=== PATIENT | female | born 1980 | race Caucasian/White ===

== ENCOUNTER 2019-04-20 10:18 | Emergency (ER) | payer OTHER, SELFPAY ==
[2019-04-20 10:26] VITALS: BP 129/78; PULSE 90; RESP 18; TEMP 36.8; O2SAT 98; BMI 23.3
--- NOTE | 2019-04-20 10:40 | ED_ITS ---
Entered by Gladis Pierce, acting as scribe for Apr 20, 2019 10:18 HPI - URI/Sore Throat General: Chief Complaint: Upper Respiratory Infection Stated Complaint: Ear pain, congested Time Seen by Provider: 04/20/19 10:33 Source: patient Mode of arrival: ambulatory Limitations: no limitations History of Present Illness: HPI Narrative: 38 yo female presents with congestion and R ear pain. pt states this started 1 week ago but worsened today when she woke up. pt has a productive cough that is green. pt denies any other symptoms at this time. MD elicited complaint: cough, nasal congestion and other (R ear pain) Onset (ago): week(s) (1 week ago) Consistency: constant Severity: moderate Description of mucous: green Able to tolerate fluids by mouth: Yes Exacerbating factors: nothing Relieving factors: nothing Associated symptoms: Reports congestion, cough, nasal congestion and other (R ear pain) Treatments prior to arrival: none Review of Systems General: Reports: 10 or more systems reviewed and unremarkable except in HPI and below ENMT: Reports: nasal congestion PFSH ED PFSH: Statuses (acute, chronic, etc) shown below reflect problem list status as previously entered and may not be historically accurate Social History Smoking and tobacco status: current every day smoker Female Reproductive History: Date of last menstrual period: 04/18/19 Physical Exam Const: COMMON NORMALS: no apparent distress, average body habitus, oriented x3, no limitations, healthy appearing, alert and well nourished Eye: COMMON NORMALS: PERRL, EOMs intact bilaterally, conjunctivae normal, no scleral icterus, no papilledema, normal visual guzman by confrontation and fundi normal bilaterally CONJUNCTIVA: Yes conjunctivae normal PUPIL: Yes PERRL DIRECT OPHTHALMOSCOPY: Yes no papilledema and Yes fundi normal bilaterally Neck/C-Spine: COMMON NORMALS: full ROM, no lymphadenopathy, supple, no meningeal signs, no JVD, thyroid normal and no carotid bruits THYROID: thyroid normal Chest: COMMONS NORMALS: inspection of chest normal and palpation of chest normal Resp: COMMON NORMALS: normal respiratory effort, no retractions, no use of accessory muscles, clear to auscultation bilaterally and percussion normal AUSCULTATION: clear to auscultation bilaterally PERCUSSION: percussion normal Cardio: COMMON NORMALS: no JVD, regular rate, regular rhythm, S1 normal heart sound, S2 normal heart sound, no gallops, no clicks, no murmurs, no rub and peripheral pulses 2+ throughout RATE: regular rate RHYTHM: regular rhythm HEART SOUNDS: S1 normal and S2 normal PERIPHERAL PULSES: pulses 2+ throughout GI: COMMON NORMALS: normal to inspection, nondistended, normoactive bowel sounds, soft to palpation, non-tender, no hepatosplenomegaly, no masses and no bruits PALPATION: Yes soft and Yes no hepatosplenomegaly : COMMON NORMALS: Yes no CVA tenderness and Yes external appearance normal BLADDER/KIDNEY EXAM: Yes no CVA tenderness Back/Pelvis: COMMON NORMALS: no CVA tenderness, thoracic and lumbar spine normal to inspection, no thoracic nor lumbar tenderness, thoraco-lumbar ROM normal and straight leg raise negative bilaterally Extremity: COMMON NORMALS: normal to inspection, full ROM, normal capillary refill, no joint enlargement, no clubbing, cyanosis or edema, no calf tenderness and no pedal edema Neuro: COMMON NORMALS: oriented x3 SENSORIUM/ORIENTATION: Yes alert MENINGEAL SIGNS: Yes no meningeal signs Skin: COMMON NORMALS: no rashes or lesions noted, no wounds, skin turgor normal, no jaundice, no petechiae and no mottling GENERAL SKIN EXAM: no rashes or lesions noted and turgor normal Course Vital Signs: Vital signs: Vital Signs Temperature 98.2 F 04/20/19 10:26 Pulse Rate 90 04/20/19 10:26 Respiratory Rate 18 04/20/19 10:26 Blood Pressure 129/78 04/20/19 10:26 Pulse Oximetry 98 04/20/19 10:26 Discharge Plan Discharge Clinical Impression: Upper respiratory infection, Sinusitis Condition: Stable Prescriptions: New Bactrim DS 800-160 mg tablet 1 tab PO BID 10 Days Qty: 20 RF: 0 prednisone 10 mg tablets,dose pack See Rx Instructions .ROUTE .COMPLEX Qty: 21 RF: 0 Discharge Orders: Discharge Order (Routine); Ordered 04/20/19 Ordered By: Anil Lee Coding Level of Care Code ED Software Developer Mid Level for Chg Fwd Exam Problem Focused The documentation recorded by the Stan fajardo Bridget Annette, accurately reflects the service I personally performed and the decisions made by me, Anil Olivo, DO Apr 20, 2019 10:18
--- NOTE | 2019-04-20 10:58 | W.ED.URI ---
HPI - URI/Sore Throat General: Chief Complaint: Upper Respiratory Infection Stated Complaint: Ear pain, congested Time Seen by Provider: 04/20/19 10:33 Source: patient Mode of arrival: ambulatory Limitations: no limitations History of Present Illness: MD elicited complaint: cough Severity: moderate Exacerbating factors: nothing Relieving factors: nothing Associated symptoms: Reports nasal congestion Treatments prior to arrival: none Review of Systems General: Reports: 10 or more systems reviewed and unremarkable except in HPI and below ENMT: Reports: nasal congestion PFSH ED PFSH: Statuses (acute, chronic, etc) shown below reflect problem list status as previously entered and may not be historically accurate Social History Smoking and tobacco status: current every day smoker Female Reproductive History: Date of last menstrual period: 04/18/19 Physical Exam Const: COMMON NORMALS: no apparent distress, average body habitus, oriented x3, no limitations, healthy appearing, alert and well nourished Eye: COMMON NORMALS: PERRL, EOMs intact bilaterally, conjunctivae normal, no scleral icterus, no papilledema, normal visual guzman by confrontation and fundi normal bilaterally CONJUNCTIVA: Yes conjunctivae normal PUPIL: Yes PERRL DIRECT OPHTHALMOSCOPY: Yes no papilledema and Yes fundi normal bilaterally Neck/C-Spine: COMMON NORMALS: full ROM, no lymphadenopathy, supple, no meningeal signs, no JVD, thyroid normal and no carotid bruits THYROID: thyroid normal Chest: COMMONS NORMALS: inspection of chest normal and palpation of chest normal Resp: COMMON NORMALS: normal respiratory effort, no retractions, no use of accessory muscles, clear to auscultation bilaterally and percussion normal AUSCULTATION: clear to auscultation bilaterally PERCUSSION: percussion normal Cardio: COMMON NORMALS: no JVD, regular rate, regular rhythm, S1 normal heart sound, S2 normal heart sound, no gallops, no clicks, no murmurs, no rub and peripheral pulses 2+ throughout RATE: regular rate RHYTHM: regular rhythm HEART SOUNDS: S1 normal and S2 normal PERIPHERAL PULSES: pulses 2+ throughout GI: COMMON NORMALS: normal to inspection, nondistended, normoactive bowel sounds, soft to palpation, non-tender, no hepatosplenomegaly, no masses and no bruits PALPATION: Yes soft and Yes no hepatosplenomegaly : COMMON NORMALS: Yes no CVA tenderness and Yes external appearance normal BLADDER/KIDNEY EXAM: Yes no CVA tenderness Back/Pelvis: COMMON NORMALS: no CVA tenderness, thoracic and lumbar spine normal to inspection, no thoracic nor lumbar tenderness, thoraco-lumbar ROM normal and straight leg raise negative bilaterally Extremity: COMMON NORMALS: normal to inspection, full ROM, normal capillary refill, no joint enlargement, no clubbing, cyanosis or edema, no calf tenderness and no pedal edema Neuro: COMMON NORMALS: oriented x3 SENSORIUM/ORIENTATION: Yes alert MENINGEAL SIGNS: Yes no meningeal signs Skin: COMMON NORMALS: no rashes or lesions noted, no wounds, skin turgor normal, no jaundice, no petechiae and no mottling GENERAL SKIN EXAM: no rashes or lesions noted and turgor normal Course Vital Signs: Vital signs: Vital Signs Temperature 98.2 F 04/20/19 10:26 Pulse Rate 90 04/20/19 10:26 Respiratory Rate 18 04/20/19 10:26 Blood Pressure 129/78 04/20/19 10:26 Pulse Oximetry 98 04/20/19 10:26 Discharge Plan Discharge Clinical Impression: Upper respiratory infection, Sinusitis Condition: Stable Prescriptions: New Bactrim DS 800-160 mg tablet 1 tab PO BID 10 Days Qty: 20 RF: 0 prednisone 10 mg tablets,dose pack See Rx Instructions .ROUTE .COMPLEX Qty: 21 RF: 0 Discharge Orders: Discharge Order (Routine); Ordered 04/20/19 Ordered By: Anil Lee Coding Level of Care Code ED Button Maker And Installer for Jake Edmonds
[2019-04-20] MEDS: cefTRIAXone 1,000 mg SDV 1000 MG IM (11:16)
[2019-04-20] MEDS: lidocaine 1% INJ 20 mL 3.6 ML INTRADERMA (11:16)
[2019-04-20 11:54] VITALS: BP 121/72; PULSE 71; RESP 18; O2SAT 96
== END 2019-04-20 11:57 | disposition home or self-care (01) ==
PROVIDERS: Emergency Provider Family Medicine
DX: J01.90 Acute sinusitis, unspecified (principal); F17.210 Nicotine dependence, cigarettes, uncomplicated
CPT/HCPCS: 96372; 99281; J0696; J2001; J2930

== ENCOUNTER 2019-05-09 02:04 | Emergency (ER) | payer OTHER, SELFPAY ==
[2019-05-09 02:09] VITALS: BP 121/67; PULSE 77; RESP 18; TEMP 36.5; O2SAT 99; BMI 23.3
--- NOTE | 2019-05-09 02:14 | ED_ITS ---
Entered by Marifer Gold, acting as scribe for Bernard Eng DO HPI - Abdominal Pain General: Chief Complaint: Abdominal Pain Stated Complaint: ABD PAIN/ABNORMAL PERIOD Time Seen by Provider: 05/09/19 02:13 Source: patient Mode of arrival: ambulatory History of Present Illness: HPI narrative: 38 y/o female presents to the ED with complaint of abd pain. Pt states she is currently on her period and has been bleeding for 10 days. This has happened once before, after having her last child. MD elicited complaint: abdominal pain Pain Consistency: intermittent Severity: mild Quality: stabbing Associated Symptoms: Denies chills, dysuria, fever(s), hematochezia, hematuria, melena, nausea and vomiting Related Data: Date of Last Menstrual Period: 04/18/19 Review of Systems Const: Denies: fever or chills Eyes: Denies: change in vision or blurry vision ENMT: Denies: dental pain Card: Denies: chest pain, palpitations, irregular heart rhythm, edema, swelling of feet/ankles, shortness of breath on exertion or shortness of breath when lying down Resp: Denies: shortness of breath, productive cough, non-productive cough or wheezing GI: Reports: abdominal pain; Denies: nausea, vomiting, rectal pain, blood in stool or black tarry stool : Reports: irregular period (more frequent); Denies: painful urination, urinary frequency, urinary urgency or blood in urine Musc: Reports: back pain; Denies: neck pain, redness or joint warmth Skin/Breast: Denies: rash, itching or redness Neuro: Reports: dizziness; Denies: headache PFSH ED PFSH: Statuses (acute, chronic, etc) shown below reflect problem list status as previously entered and may not be historically accurate Social History Smoking and tobacco status: current every day smoker Female Reproductive History: Date of last menstrual period: 04/18/19 Physical Exam Const: GENERAL APPEARANCE: well developed ORIENTATION/CONSCIOUSNESS: Yes oriented to person, Yes oriented to place and Yes oriented to time HENMT: COMMON NORMALS: normocephalic, external ears normal and external nose normal HEAD & SCALP: normocephalic; no scalp tenderness FACE & SINUS: normal facial exam NOSE: external nose normal EXTERNAL EAR: Yes external ears normal Eye: COMMON NORMALS: PERRL, EOMs intact bilaterally and conjunctivae normal EYELID: eyelids normal CONJUNCTIVA: Yes conjunctivae normal PUPIL: Yes PERRL Neck/C-Spine: COMMON NORMALS: full ROM GENERAL: No tracheal deviation CERVICAL SPINE: Yes normal cervical lordosis and No cervical spine tenderness Chest: COMMONS NORMALS: inspection of chest normal CHEST: No tenderness Resp: COMMON NORMALS: clear to auscultation bilaterally EFFORT & INSPECTION: No tachypneic, No respiratory distress, No retractions, No uses accessory muscles and No tracheal deviation AUSCULTATION: clear to auscultation bilaterally, no rhonchi, no wheezes and lung sounds not diminished Cardio: COMMON NORMALS: regular rate and regular rhythm RATE: regular rate RHYTHM: regular rhythm HEART SOUNDS: no murmurs PERIPHERAL PULSES: radial pulses present GI: COMMON NORMALS: soft to palpation INSPECTION: No abdominal distension AUSCULTATION: No hyperactive bowel sounds and No hypoactive bowel sounds PALPATION: Yes soft, Yes tender Details: RLQ, No guarding and No rigid PERCUSSION: no dullness to percussion and no tympanic to percussion : COMMON NORMALS: Yes no CVA tenderness BLADDER/KIDNEY EXAM: Yes no CVA tenderness Back/Pelvis: COMMON NORMALS: no CVA tenderness Neuro: SENSORIUM/ORIENTATION: Yes oriented to person, Yes oriented to place and Yes oriented to time Psych: COMMON NORMALS: mental status grossly normal Skin: COMMON NORMALS: no rashes or lesions noted GENERAL SKIN EXAM: no rashes or lesions noted Course ED course: Hemoglobin is 13. She is afebrile. Her white count is normal. She was actually here with another person, and decided to check in for this ch ronic problem. We will order an outpatient ultrasound of the pelvis for her. Vital Signs: Vital signs: Vital Signs Temperature 97.7 F 05/09/19 02:09 Pulse Rate 59 L 05/09/19 04:19 Respiratory Rate 17 05/09/19 04:19 Blood Pressure 103/57 05/09/19 04:19 Pulse Oximetry 100 05/09/19 04:19 MDM - Abdominal Pain Lab Data: Labs: Lab Results 05/09/19 05/09/19 05/09/19 Range/Units 02:26 02:26 02:26 WBC 6.2 (4.0-10.0) 10^3/ uL RBC 4.53 (4.1-5.3) 10^6/u L Hgb 13.1 (11.5-15.3) g/dL Hct 40.8 (37.0-47.0) % MCV 90.1 (81-99) fL MCH 28.9 (28.0-34.0) pg MCHC 32.1 (30.0-36.0) g/dL RDW 13.4 (12.1-15.1) % Plt Count 255 (130-400) 10^3/c mm MPV 9.7 (7.4-10.4) fL Neut % (Auto) 46.4 % Lymph % (Auto) 38.3 % [place] % (Auto) 12.4 % Eos % (Auto) 2.4 % Baso % (Auto) 0.2 % Neut # (Auto) 2.9 (1.8-7.7) 10^3/u L Lymph # (Auto) 2.4 (0.8-4.8) 10^3/u L [place] # (Auto) 0.8 (0.2-0.9) 10^3/u L Eos # (Auto) 0.2 (0.0-0.8) 10^3/u L Baso # (Auto) 0.0 (0.0-0.1) 10^3/u L Nucleated RBC % (a uto) 0 % Nucleated RBCs # 0.0 /100WBC PT 13.90 H (10.5-13.3) SECO NDS INR 1.03 (0.8-1.2) Sodium 136 (136-145) mmol/L Potassium 4.4 (3.5-5.1) mmol/L Chloride 100 (98-107) mmol/L Carbon Dioxide 26 (22-29) mmol/L Anion Gap 14.4 (5-19) BUN 10 (6-20) mg/dL Creatinine 0.8 (0.5-0.9) mg/dL GFR Calculation 80.3 L (90-130) mL/min Glucose 99 (74-109) mg/dL Calcium 8.9 (8.5-10.5) mg/dL Total Bilirubin 0.2 (0.15-1.2) mg/dL AST 17 (0-32) U/L ALT 14 (0-33) U/L Alkaline Phosphata se 110 H (35-105) IU/L Total Protein 8.0 (6.6-8.7) g/dL Albumin 4.1 (3.5-5.2) g/dL Globulin 3.9 (1.3-4.6) g/dL Lipase 58 (13-60) U/L HCG, Qual (Negative) Urine Color (Yellow) Urine Appearance (CLEAR) Urine pH (5-7) Ur Specific Gravit y (1.005-1.030) Urine Protein (Negative) Urine Glucose (UA) (Normal) Urine Ketones (Negative) Urine Occult Blood (Negative) Urine Nitrate (Negative) Urine Bilirubin (NEGATIVE) Urine Urobilinogen (Negative) mg/dL Ur Leukocyte Le ase (Negative) Urine RBC (0-2) /hpf Urine WBC (0-5) /hpf Ur Squamous Epith Cells (0-5) Urine Bacteria (NONE) 05/09/19 05/09/19 Range/Units 02:26 02:32 WBC (4.0-10.0) 10^3/ uL RBC (4.1-5.3) 10^6/u L Hgb (11.5-15.3) g/dL Hct (37.0-47.0) % MCV (81-99) fL MCH (28.0-34.0) pg MCHC (30.0-36.0) g/dL RDW (12.1-15.1) % Plt Count (130-400) 10^3/c mm MPV (7.4-10.4) fL Neut % (Auto) % Lymph % (Auto) % [place] % (Auto) % Eos % (Auto) % Baso % (Auto) % Neut # (Auto) (1.8-7.7) 10^3/u L Lymph # (Auto) (0.8-4.8) 10^3/u L [place] # (Auto) (0.2-0.9) 10^3/u L Eos # (Auto) (0.0-0.8) 10^3/u L Baso # (Auto) (0.0-0.1) 10^3/u L Nucleated RBC % (a uto) % Nucleated RBCs # /100WBC PT (10.5-13.3) SECO NDS INR (0.8-1.2) Sodium (136-145) mmol/L Potassium (3.5-5.1) mmol/L Chloride (98-107) mmol/L Carbon Dioxide (22-29) mmol/L Anion Gap (5-19) BUN (6-20) mg/dL Creatinine (0.5-0.9) mg/dL GFR Calculation (90-130) mL/min Glucose (74-109) mg/dL Calcium (8.5-10.5) mg/dL Total Bilirubin (0.15-1.2) mg/dL AST (0-32) U/L ALT (0-33) U/L Alkaline Phosphata se (35-105) IU/L Total Protein (6.6-8.7) g/dL Albumin (3.5-5.2) g/dL Globulin (1.3-4.6) g/dL Lipase (13-60) U/L HCG, Qual Negative (Negative) Urine Color Yellow (Yellow) Urine Appearance Clear (CLEAR) Urine pH 5 (5-7) Ur Specific Gravit y 1.020 (1.005-1.030) Urine Protein Neg (Negative) Urine Glucose (UA) Norm (Normal) Urine Ketones Negative (Negative) Urine Occult Blood 3+ H (Negative) Urine Nitrate Negative (Negative) Urine Bilirubin Neg (NEGATIVE) Urine Urobilinogen Norm (Negative) mg/dL Ur Leukocyte Le ase Negative (Negative) Urine RBC 0-4 H (0-2) /hpf Urine WBC 5-10 H (0-5) /hpf Ur Squamous Epith Cells 0-4 H (0-5) Urine Bacteria 1+ H (NONE) Discharge Plan Discharge Patient Disposition: Home, Self-Care Clinical Impression: Dysfunctional uterine bleeding Condition: Stable Prescriptions: New ketorolac 10 mg tablet 10 mg PO Q6H PRN (Reason: pain) Qty: 10 RF: 0 No Action prednisone 10 mg tablets,dose pack See Rx Instructions .ROUTE .COMPLEX Qty: 21 RF: 0 Discharge Orders: Discharge Order (Routine); Ordered 05/09/19 Ordered By: Bernard Eng Discharge Diet: Advance as tolerated Discharge Activity: Resume usual activity Patient Instructions: Dysfunctional Uterine Bleeding (ED) Activity Restrictions/Additional Instructions: You have been prescribed a potent anti-inflammatory which can help with pain, but also can help decrease bleeding from the uterus. You will be set up for an outpatient ultrasound. You should receive a call from the hospital regarding schedule this at the beginning of the week. If you do not call [phone] and ask for the ER nurse case manager. Return for fever greater than 100, worsening pain despite treatment, worsening bleeding despite treatment. Discharge Date/Time: 05/09/19 04:20 Coding Level of Care Code ED Air Deodorizer Servicer for Jake Edmonds The documentation recorded by the Asif fajardo Ashley, accurately reflects the service I personally performed and the decisions made by Velasquez fenton Jeremy John, DO May 09, 2019 02:04
[2019-05-09 02:20] VITALS: BP 113/62; PULSE 62; RESP 14; O2SAT 100
[2019-05-09] MEDS: ondansetron 2 mg/ML SDV 2 mL 4 MG IVP (02:39)
[2019-05-09] MEDS: ketorolac 30 mg/mL INJ IVP (02:39)
[2019-05-09 02:44] LABS: Basophils % 0.2 %; Eosinophils # 0.2 10^3/uL (0.0-0.8); Eosinophils % 2.4 %; Hematocrit 40.8 % (37.0-47.0); Hemoglobin 13.1 g/dL (11.5-15.3); Lymphocytes # 2.4 10^3/uL (0.8-4.8); Lymphocytes % 38.3 %; Mean Corpuscular HGB Conc 32.1 g/dL (30.0-36.0); Mean Corpuscular Hemoglobin 28.9 pg (28.0-34.0); Mean Corpuscular Volume 90.1 fL (81-99); Mean Platelet Volume 9.7 fL (7.4-10.4); Monocytes # 0.8 10^3/uL (0.2-0.9); Monocytes % 12.4 %; Neutrophils # 2.9 10^3/uL (1.8-7.7); Neutrophils % 46.4 %; Nucleated Red Blood Cells % 0 %; Platelet Count 255 10^3/cmm (130-400); Red Blood Count 4.53 10^6/uL (4.1-5.3); Red Cell Distribution Width 13.4 % (12.1-15.1); White Blood Count 6.2 10^3/uL (4.0-10.0)
[2019-05-09 02:52] LABS: HCG, Serum Qual Negative (Negative); INR 1.03 (0.8-1.2)
[2019-05-09 03:02] LABS: Alanine Aminotransferase 14 U/L (0-33); Albumin Level 4.1 g/dL (3.5-5.2); Alkaline Phosphatase 110 IU/L (35-105); Anion Gap 14.4 (5-19); Aspartate Amino Transferase 17 U/L (0-32); Blood Urea Nitrogen 10 mg/dL (6-20); Calcium 8.9 mg/dL (8.5-10.5); Carbon Dioxide 26 mmol/L (22-29); Chloride 100 mmol/L (98-107); Globulin 3.9 g/dL (1.3-4.6); Glomerular Filtration Rate 80.3 mL/min (90-130); Glucose 99 mg/dL (74-109); Lipase 58 U/L (13-60); Potassium 4.4 mmol/L (3.5-5.1); Sodium 136 mmol/L (136-145); Total Bilirubin 0.2 mg/dL (0.15-1.2)
[2019-05-09 03:28] LABS: Urine Color Yellow (Yellow)
[2019-05-09 03:29] VITALS: BP 93/60; PULSE 63; RESP 16; O2SAT 100
[2019-05-09 03:29] LABS: Add Urine Culture? No; Add Urine Microscopic? YES; Bacteria Urine 1+; Bilirubin Urine Neg (NEGATIVE); Blood Urine 3+ (Negative); Glucose Urine UA Norm (Normal); Ketones Urine Negative (Negative); Leukocyte Esterase Urine Negative (Negative); Nitrate Urine Negative (Negative); Protein Urine Neg (Negative); RBC Urine 0-4 /hpf (0-2); Squamous Epithelial Cell Urine 0-4 (0-5); Urine Appearance Clear (CLEAR); Urobilinogen Urine Norm (Negative); pH Urine 5 (5-7)
[2019-05-09 04:19] VITALS: BP 103/57; PULSE 59; RESP 17; O2SAT 100
--- NOTE | 2019-05-11 11:44 | DCPLANNER ---
Patient called hospice case manager asking about an ultrasound. online merchandising manager has order, but was unable to send order to centralized scheduling due to not having a primary care physician. online merchandising manager spoke with patient, she stated that she does not have a primary care physician at this time. online merchandising manager offered to get patient established with a [facility] [place], patient told hospice case manager to get her established with a physician. online merchandising manager faxed order to centralized scheduling, will call for appointment information. online merchandising manager will schedule a follow up appointment for patient with Uzma Kaiser at [facility] [place] after the ultrasound is scheduled.
--- NOTE | 2019-05-14 09:22 | DCPLANNER ---
Patient called family preservation caseworker and informed family preservation caseworker that her primary care physician is Dr. Calero at [facility]. compensation consulting manager called centralized scheduling, and asked that it be changed on order to have results sent to Dr. Calero instead of Uzma Kaiser. An ultrasound is scheduled for May at 3:00.
--- NOTE | 2019-06-16 15:18 | DCPLANNER ---
Patient did not attend appointment scheduled for 05.27.19 for an ultrasound.
== END 2019-05-09 04:20 | disposition home or self-care (01) ==
PROVIDERS: Emergency Provider Emergency Medicine
DX: N93.8 Other specified abnormal uterine and vaginal bleeding (principal); F17.210 Nicotine dependence, cigarettes, uncomplicated
CPT/HCPCS: 80053; 81001; 83690; 84703; 85025; 85610; 96374; 96375; 99283; J1885; J2405

== ENCOUNTER 2019-05-11 16:35 | Emergency (ER) | payer OTHER, SELFPAY ==
[2019-05-11 16:38] VITALS: BP 120/71; PULSE 68; RESP 16; TEMP 36.6; O2SAT 100; BMI 23.0
[2019-05-11 17:08] LABS: Basophils % 0.1 %; Eosinophils # 0.1 10^3/uL (0.0-0.8); Eosinophils % 1.1 %; Hematocrit 39.6 % (37.0-47.0); Hemoglobin 12.7 g/dL (11.5-15.3); Lymphocytes # 2.8 10^3/uL (0.8-4.8); Lymphocytes % 33.4 %; Mean Corpuscular HGB Conc 32.1 g/dL (30.0-36.0); Mean Corpuscular Hemoglobin 29.3 pg (28.0-34.0); Mean Corpuscular Volume 91.2 fL (81-99); Mean Platelet Volume 9.8 fL (7.4-10.4); Monocytes # 0.5 10^3/uL (0.2-0.9); Monocytes % 6.2 %; Nucleated Red Blood Cells % 0 %; Platelet Count 264 10^3/cmm (130-400); Red Blood Count 4.34 10^6/uL (4.1-5.3); Red Cell Distribution Width 13.2 % (12.1-15.1); White Blood Count 8.5 10^3/uL (4.0-10.0)
[2019-05-11 17:21] LABS: Alanine Aminotransferase 15 U/L (0-33); Albumin Level 4.4 g/dL (3.5-5.2); Alkaline Phosphatase 114 IU/L (35-105); Anion Gap 13.3 (5-19); Aspartate Amino Transferase 21 U/L (0-32); Blood Urea Nitrogen 6 mg/dL (6-20); Calcium 9.1 mg/dL (8.5-10.5); Carbon Dioxide 27 mmol/L (22-29); Chloride 99 mmol/L (98-107); Globulin 3.5 g/dL (1.3-4.6); Glomerular Filtration Rate 80.3 mL/min (90-130); Potassium 4.3 mmol/L (3.5-5.1); Sodium 135 mmol/L (136-145); Total Bilirubin 0.2 mg/dL (0.15-1.2); Total Protein 7.9 g/dL (6.6-8.7)
--- NOTE | 2019-05-11 18:21 | US_ITS ---
WS: [id number] TRANSABDOMINAL PELVIC AND TRANSVAGINAL PELVIC ULTRASOUND HISTORY: vaginal bleeding and pain COMPARISON: None available. Uterus: 10.1 cm x 5.7 cm x 6.0 cm. Uterus is slightly enlarged and anteverted. Coarsened myometrium. No fibroid is identified. Endometrium: 1.3 cm. Poorly visualized endometrium in its entirety. There is a very small amount of f ree fluid along the endometrial canal. Right ovary: 6.6 cm x 5.8 cm x 2.4 cm. Abnormal appearance to the RIGHT ovary and RIGHT adnexa. Multi cystic mass with septations in adjacent free fluid. Largest cyst is minimally complex measuring 4.1 x 3.2 cm. There are smaller cysts and a small amount of adjacent fluid. Normal vascularity. Left ovary: 1.8 cm x 2.5 cm x 1.3 cm. Normal. Normal vascularity with no cysts. Small amount of free fluid in the RIGHT adnexa. US/US pelvis lmt w transvag IMPRESSION: 1. Enlarged RIGHT ovary with multiple complex cysts and adjacent free fluid. L argest cyst measures 4.1 x 3.2 cm. Recommend follow-up ultrasound after 2-3 men strual cycles to be sure this cystic mass resolves. Due to the enlargement and the numerous cysts patient is at risk for torsion. At this time there is no tor scott. 2. Endometrium is poorly visualized but no abnormality. Endometrium can be ree valuated in 2-3 menstrual cycles also.
--- NOTE | 2019-05-11 18:34 | ED_ITS ---
HPI - Female Genitourinary General: Chief complaint: Urogenital-Female Stated complaint: BLEEDING X 15 DAYS Time Seen by Provider: 05/11/19 18:18 Source: patient Limitations: no limitations History of Present Illness: HPI Narrative: 38 yo female patient presents to ER with intermittent vaginal bleeding and pain. Pt states this has been going on for months. Pt denies being . pt jefe any nausea or vomiting. pt denies any fever. pt denies any back pain Vaginal bleeding: scant and moderate Urinary symptoms: Difficulty Urinating, Dysuria and Flank Pain Exacerbating factors: none Associated symptoms: Reports abdominal pain (right pelvic pain); Deny headache(s) Date of Last Menstrual Period: 04/18/19 Review of Systems Const: Denies: fever, chills, body aches, fatigue or malaise Card: Denies: chest pain or palpitations Resp: Denies: shortness of breath or productive cough GI: Reports: abdominal pain (right pelvic pain) : Denies: flank pain, difficulty urinating or painful urination Skin/Breast: Denies: rash Neuro: Denies: headache Psych: Denies: anxiety, suicidal ideation or homicidal ideation PFSH ED PFSH: Statuses (acute, chronic, etc) shown below reflect problem list status as previously entered and may not be historically accurate Social History Smoking and tobacco status: current every day smoker Female Reproductive History: Date of last menstrual period: 04/18/19 Physical Exam Const: COMMON NORMALS: no apparent distress and no limitations Lymph: LYMPHATIC: no lymphadenopathy noted Resp: COMMON NORMALS: normal respiratory effort, no retractions, no use of accessory muscles and clear to auscultation bilaterally AUSCULTATION: clear to auscultation bilaterally Cardio: COMMON NORMALS: regular rate and regular rhythm RATE: regular rate RHYTHM: regular rhythm GI: COMMON NORMALS: normal to inspection, nondistended, normoactive bowel sounds and soft to palpation PALPATION: Yes soft and Yes tender (right lower pelvic region) RECTAL EXAM: deferred : COMMON NORMALS: Yes no CVA tenderness BLADDER/KIDNEY EXAM: Yes no CVA tenderness Back/Pelvis: COMMON NORMALS: no CVA tenderness, thoracic and lumbar spine normal to inspection, no thoracic nor lumbar tenderness and thoraco-lumbar ROM normal Skin: COMMON NORMALS: no rashes or lesions noted GENERAL SKIN EXAM: no rashes or lesions noted Course ED course: Pt is well appearing non toxic and in no acute distress. Pt US reveals ovarian cyst. no evidence of ovarian torsion. Pts urine does not reflect any infection. pt H & H are stable. This could be related to premenopausal sx. Pt just got established wit new PCP and has pap smear scheduled. pt to f/u pt advised to take nsaids for pain. return precautions advised home care reviewed. UPT negative. pt deneis any vaginal discharge. no concerns for STD. Vital Signs: Vital signs: Vital Signs Temperature 97.9 F 05/11/19 16:38 Pulse Rate 68 05/11/19 16:38 Respiratory Rate 16 05/11/19 16:38 Blood Pressure 120/71 05/11/19 16:38 Pulse Oximetry 100 05/11/19 16:38 MDM - Female Lab Data: Labs: Lab Results 05/11/19 05/11/19 Range/Units 16:56 16:56 WBC 8.5 (4.0-10.0) 10^3/ uL RBC 4.34 (4.1-5.3) 10^6/u L Hgb 12.7 (11.5-15.3) g/dL Hct 39.6 (37.0-47.0) % MCV 91.2 (81-99) fL MCH 29.3 (28.0-34.0) pg MCHC 32.1 (30.0-36.0) g/dL RDW 13.2 (12.1-15.1) % Plt Count 264 (130-400) 10^3/c mm MPV 9.8 (7.4-10.4) fL Neut % (Auto) 59.0 % Lymph % (Auto) 33.4 % [place] % (Auto) 6.2 % Eos % (Auto) 1.1 % Baso % (Auto) 0.1 % Neut # (Auto) 5.0 (1.8-7.7) 10^3/u L Lymph # (Auto) 2.8 (0.8-4.8) 10^3/u L [place] # (Auto) 0.5 (0.2-0.9) 10^3/u L Eos # (Auto) 0.1 (0.0-0.8) 10^3/u L Baso # (Auto) 0.0 (0.0-0.1) 10^3/u L Nucleated RBC % (a uto) 0 % Nucleated RBCs # 0.0 /100WBC Sodium 135 L (136-145) mmol/L Potassium 4.3 (3.5-5.1) mmol/L Chloride 99 (98-107) mmol/L Carbon Dioxide 27 (22-29) mmol/L Anion Gap 13.3 (5-19) BUN 6 (6-20) mg/dL Creatinine 0.8 (0.5-0.9) mg/dL GFR Calculation 80.3 L (90-130) mL/min Glucose 117 H (65-115) mg/dL Calcium 9.1 (8.5-10.5) mg/dL Total Bilirubin 0.2 (0.15-1.2) mg/dL AST 21 (0-32) U/L ALT 15 (0-33) U/L Alkaline Phosphata se 114 H (35-105) IU/L Total Protein 7.9 (6.6-8.7) g/dL Albumin 4.4 (3.5-5.2) g/dL Globulin 3.5 (1.3-4.6) g/dL Discharge Plan Discharge Patient Disposition: Home, Self-Care Clinical Impression: Ovarian cyst Qualifiers: Laterality: right Qualified Code(s): N83.201 - Unspecified ovarian cyst, right side Condition: Stable Prescriptions: No Action prednisone 10 mg tablets,dose pack See Rx Instructions .ROUTE .COMPLEX Qty: 21 RF: 0 ketorolac 10 mg tablet 10 mg PO Q6H PRN (Reason: pain) Qty: 10 RF: 0 Discharge Diet: Advance as tolerated Discharge Activity: Resume usual activity Activity Restrictions/Additional Instructions: Please take over the counter Ibuprofen as needed for discomfort Please follow up with your PCP for check up and follow up. Please return to ER with any worsening of symptoms Coding Level of Care Code ED Presser [employer] for Jake Edmonds
--- NOTE | 2019-05-11 18:41 | PC.NURSE ---
patient gone to us
[2019-05-11 19:05] LABS: Add Urine Microscopic? NO
[2019-05-11 19:19] LABS: Bilirubin Urine Neg (NEGATIVE); Blood Urine Neg (Negative); Glucose Urine UA Norm (Normal); Ketones Urine Negative (Negative); Leukocyte Esterase Urine Negative (Negative); Nitrate Urine Negative (Negative); Protein Urine Neg (Negative); Urine Appearance Clear (CLEAR); Urine Color Yellow (Yellow); Urobilinogen Urine 1 mg/dL (Negative); pH Urine 7 (5-7)
[2019-05-11 19:46] VITALS: BP 100/54; PULSE 64; RESP 18; TEMP 36.5; O2SAT 98
[2019-05-12 09:02] LABS: Glucose 117 mg/dL (65-115)
== END 2019-05-11 19:48 | disposition home or self-care (01) ==
PROVIDERS: Registered Nurse; Emergency Provider Emergency Medicine
DX: N83.201 Unspecified ovarian cyst, right side (principal); F17.200 Nicotine dependence, unspecified, uncomplicated
CPT/HCPCS: 36415; 76830; 76857; 80053; 81003; 81025; 85025; 99282

== ENCOUNTER 2019-06-03 07:50 | Emergency (ER) | payer OTHER, SELFPAY ==
[2019-06-03 07:59] VITALS: BMI 23.3
[2019-06-03 08:02] VITALS: BP 137/75; PULSE 76; RESP 18; TEMP 36.6; O2SAT 99
[2019-06-03 09:20] VITALS: BP 125/62; PULSE 63; RESP 17; O2SAT 100
--- NOTE | 2019-06-03 09:20 | ED_ITS ---
Entered by Jesus Alberto Bob, acting as scribe for Wyatt Mcwilliams DO Jun 03, 2019 07:50 HPI - Back Pain/Injury General: Chief Complaint: Back Pain/Injury Stated Complaint: BACK PAIN Time Seen by Provider: 06/03/19 09:23 History of Present Illness: HPI Narrative: 38 yo female presents with back pain. Pt states that she thinks she pulled something in her back yesterday. Pt states that she is having a hard time sitting up straight. Pt states that she has had abd pain and vaginal bleeding for a couple of weeks. Pt states that she has an appointment with her OB tomorrow. Associated symptoms: Reports abdominal pain; Deny chills, difficulty walking, dysuria, fatigue, fever(s), hematuria, nausea, syncope, urinary urgency or vomiting Review of Systems Const: Denies: fever, chills, body aches, fatigue, malaise or night sweats Eyes: Denies: change in vision or blurry vision ENMT: Denies: throat pain, oral sores/lesions, dental pain, nasal discharge or nasal congestion Card: Denies: chest pain, palpitations, irregular heart rhythm, edema, syncope, shortness of breath on exertion, shortness of breath when lying down or leg pain with exertion Resp: Denies: shortness of breath, productive cough, non-productive cough or wheezing GI: Reports: abdominal pain; Denies: nausea, vomiting, vomiting blood, coffee grounds in vomit, difficulty swallowing, heartburn/indigestion, diarrhea, constipation, cramping, blood in stool or black tarry stool : Denies: flank pain, painful urination, urinary frequency, urinary urgency, urinary incontinence or blood in urine Musc: Reports: back pain; Denies: neck pain, extremity pain, extremity swelling, joint pain or joint swelling Skin/Breast: Denies: rash, itching or redness Neuro: Denies: headache, numbness in extremities, weakness in extremities, changes in sensation, lack of coordination, difficulty walking, frequent falls, dizziness, vertigo or confusion Psych: Denies: anxiety, depression, loss of interest, visual hallucinations, auditory hallucinations, suicidal ideation or homicidal ideation Endo: Denies: excessive urination, excessive thirst, tired all the time or cold intolerance Yobani/Lymph: Denies: easy bruising, easy bleeding, petechiae, enlarged lymph nodes or tender lymph nodes PFSH ED PFSH: Medical History (Updated 06/03/19 @ 10:31 by Wyatt Mcwilliams DO) Acute arthritis Scoliosis Surgical History (Updated 06/03/19 @ 10:04 by Jesus Alberto Bob) History of laparoscopy Social History Smoking and tobacco status: current every day smoker Female Reproductive History: Date of last menstrual period: 04/18/19 Physical Exam Const: COMMON NORMALS: average body habitus, oriented x3 and alert GENERAL APPEARANCE: cooperative, comfortable, well kempt and well developed NUTRITIONAL APPEARANCE: obese ORIENTATION/CONSCIOUSNESS: Yes awake, Yes oriented to person and Yes oriented to place HENMT: COMMON NORMALS: normocephalic, head/scalp atraumatic, EAC's normal, TM's normal bilaterally, external nose normal, moist oral mucous membranes and oropharynx normal HEAD & SCALP: normocephalic and atraumatic NOSE: external nose normal EXTERNAL AUDITORY CANAL: EAC's normal TYMPANIC MEMBRANE: TM's normal bilaterally MOUTH: oral and palatal mucosa normal, lip normal and tongue normal THROAT: posterior oropharynx normal and tonsils normal Eye: COMMON NORMALS: PERRL, EOMs intact bilaterally, conjunctivae normal and no scleral icterus CONJUNCTIVA: Yes conjunctivae normal PUPIL: Yes PERRL Neck/C-Spine: COMMON NORMALS: full ROM, no lymphadenopathy, supple, no meningeal signs and thyroid normal THYROID: thyroid normal and asymmetrical Lymph: LYMPHATIC: no lymphadenopathy noted Resp: COMMON NORMALS: normal respiratory effort, no retractions, no use of accessory muscles and clear to auscultation bilaterally AUSCULTATION: clear to auscultation bilaterally Cardio: COMMON NORMALS: regular rate and regular rhythm RATE: regular rate RHYTHM: regular rhythm HEART SOUNDS: no murmurs GI: COMMON NORMALS: normal to inspection, nondistended, normoactive bowel sounds, soft to palpation and no hepatosplenomegaly PALPATION: Yes soft and Yes no hepatosplenomegaly : COMMON NORMALS: Yes no CVA tenderness BLADDER/KIDNEY EXAM: Yes no CVA tenderness Back/Pelvis: COMMON NORMALS: no CVA tenderness LUMBAR SPINE/LOWER BACK: Yes pain with ROM Extremity: COMMON NORMALS: no clubbing, cyanosis or edema, no calf tenderness and no pedal edema Neuro: COMMON NORMALS: oriented x3 SENSORIUM/ORIENTATION: Yes alert, Yes oriented to person and Yes oriented to place MENINGEAL SIGNS: Yes no meningeal signs Psych: APPEARANCE: Yes well kempt Skin: COMMON NORMALS: no rashes or lesions noted and skin turgor normal GENERAL SKIN EXAM: no rashes or lesions noted and turgor normal Course Vital Signs: Vital signs: Vital Signs Temperature 97.8 F 06/03/19 08:02 Pulse Rate 58 L 06/03/19 10:38 Respiratory Rate 15 06/03/19 10:38 Blood Pressure 107/70 06/03/19 10:38 Pulse Oximetry 100 06/03/19 10:38 Discharge Plan Discharge Patient Disposition: Home, Self-Care Clinical Impression: Strain of lumbar region Condition: Stable Prescriptions: New hydrocodone-acetaminophen 5-325 mg tablet 1 tab PO Q6H PRN (Reason: pain) Qty: 10 RF: 0 diclofenac sodium 75 mg tablet,delayed release (DR/EC) 75 mg PO Q12H PRN (Reason: pain) Qty: 20 RF: 0 cyclobenzaprine 10 mg tablet 10 mg PO TID PRN (Reason: muscle spasm) Qty: 20 RF: 0 No Action Tylenol Extra Strength 500 mg Tablet 500 mg PO Q4H PRN (Reason: Pain) RF: 0 iron 325 mg (65 mg iron) Tablet 325 mg PO DAILY RF: 0 Discharge Orders: Discharge Order (Routine); Ordered 06/03/19 Ordered By: Wyatt Mcwilliams Discharge Diet: Usual diet Discharge Activity: Increase activity as tolerated Activity Restrictions/Additional Instructions: Follow-up with your primary care doctor if this does not improve Stand Alone Forms: Work/School Release Discharge Date/Time: 06/03/19 10:39 Coding Level of Care Code ED Urogynecology Physician for Chg Fwd Exam Comprehensive The documentation recorded by the Paulino fajardo Kialy, accurately reflects the service I personally performed and the decisions made by Oj fenton Curtis L, DO Jun 03, 2019 07:50
[2019-06-03] MEDS: ketorolac 60 mg/2 mL INJ IM (10:16)
[2019-06-03] MEDS: orphenadrine 30 mg/mL Inj 2 mL 60 MG IM (10:20)
[2019-06-03 10:38] VITALS: BP 107/70; PULSE 58; RESP 15; O2SAT 100
== END 2019-06-03 10:39 | disposition home or self-care (01) ==
PROVIDERS: Emergency Provider Family Medicine
DX: S39.012A Strain of muscle, fascia and tendon of lower back, initial encounter (principal); E66.9 Obesity, unspecified; Z68.23 Body mass index [BMI] 23.0-23.9, adult; F17.200 Nicotine dependence, unspecified, uncomplicated; X58.XXXA Exposure to other specified factors, initial encounter
CPT/HCPCS: 96372; 99281; 99283; J1885; J2360

== ENCOUNTER 2019-09-04 10:35 | Emergency (ER) | payer OTHER, SELFPAY ==
[2019-09-04 10:43] VITALS: BMI 22.2
[2019-09-04 10:45] VITALS: BP 116/69; PULSE 74; RESP 16; TEMP 36.4; O2SAT 98
--- NOTE | 2019-09-04 10:50 | W.ED.EAR ---
HPI - Ear Problem General: Chief complaint: Ear Stated complaint: INSECT IN L EAR Time Seen by Provider: 09/04/19 10:43 History of Present Illness: HPI Narrative: Patient is a 39-year-old female comes to the ED with a left ear problem. Patient states she has an insect in her left ear. Incident occurred just prior to arrival. Patient felt something crawling in her neck and she swatted at it and felt to go into her left ear. Patient says she can feel it moving in her ear every now and then. She rates this discomfort about a 7 out of 10. Denies any other symptoms. Associated symptoms: Reports ear or mastoid pain (due to possible insect in ear); Denies fever(s), headache(s) or neck pain Review of Systems Const: Denies: fever(s), chills or fatigue Eyes: Denies: change in vision or eye discomfort ENMT: Reports: ear or mastoid pain (due to possible insect in ear) and other (possible insect in ear); Denies: throat pain, odynophagia, nasal discharge or nasal congestion Card: Denies: chest pain, palpitations, edema, swelling of feet/ankles, dyspnea on exertion or orthopnea Resp: Denies: dyspnea, productive cough or non-productive cough GI: Denies: abdominal pain, nausea, vomiting, diarrhea, constipation or hematochezia : Denies: flank pain, dysuria or hematuria Musc: Denies: neck pain, back pain or extremity swelling Skin/Breast: Denies: rash or new lesions Neuro: Denies: headache(s), numbness in extremities or weakness in extremities PFS ED PFSH: Medical History Acute arthritis Scoliosis Surgical History History of section x 2, 1998, 2019 History of laparoscopy (~2004) With cyst removal from right ovary and take down of adhesions [place] teeth extracted Family History Grandmother Diabetes maternal and paternal Hypertension maternal and paternal Stroke maternal Heart disease maternal Family/Other Diabetes Maternal aunt Hyperlipidemia Maternal and paternal aunt and uncle Breast cancer Maternal aunt, diagnosed in her 60s Uterine cancer Maternal cousin, diagnosed at age 24 Mother Hyperlipidemia Hypertension Stroke Heart disease Father Hypertension Stroke Heart disease Sister Thyroid condition Denies family history of Colon cancer Ovarian cancer Anesthesia complication Social History Smoking and tobacco status: current every day smoker cigarettes Packs smoked per day: 1 [ Other cigarette details: Started smoking age 9 and smokes up to 1 pack daily ] Alcohol intake: current Alcohol intake frequency: holidays/special occasions only 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 [employer] Female Reproductive History: Date of last menstrual period: 08/19/19 Physical Exam Const: COMMON NORMALS: no acute distress, patient oriented x3, healthy appearing and alert GENERAL APPEARANCE: cooperative HENMT: COMMON NORMALS: normocephalic and TM's normal bilaterally HEAD & SCALP: normocephalic EXTERNAL AUDITORY CANAL: Abnormal EAC present EAC laterality: right Details: excessive cerumen and left (no actual insect visualized.) Details: excessive cerumen and EAC tenderness TYMPANIC MEMBRANE: TM's normal bilaterally MOUTH: Normal oral and palatal mucosa present THROAT: posterior oropharynx normal and uvula midline Eye: COMMON NORMALS: Equal, round and reactive pupils present PUPIL: Yes Equal, round and reactive pupils present Neck/C-Spine: COMMON NORMALS: supple GENERAL: Yes normal visual inspection Resp: COMMON NORMALS: normal respiratory effort, No retractions, No use of accessory muscles and clear to auscultation bilaterally AUSCULTATION: clear to auscultation bilaterally Cardio: COMMON NORMALS: regular rate, regular rhythm, S1 normal heart sound present, S2 normal heart sound present, No gallops present (Cardio), No clicks present (Cardio), No murmurs present (Cardio) and Peripheral pulses 2+ throughout RATE: regular rate RHYTHM: regular rhythm HEART SOUNDS: S1 normal heart sound present and S2 normal heart sound present PERIPHERAL PULSES: Peripheral pulses 2+ throughout GI: COMMON NORMALS: Normal to inspection, nondistended, normoactive bowel sounds present, Soft to palpation, non-tender and no masses PALPATION: Yes Soft to palpation : COMMON NORMALS: Yes no CVA tenderness BLADDER/KIDNEY EXAM: Yes no CVA tenderness Back/Pelvis: COMMON NORMALS: no CVA tenderness Extremity: COMMON NORMALS: normal to inspection and no pedal edema Neuro: COMMON NORMALS: patient oriented x3 and moves all extremities SENSORIUM/ORIENTATION: Yes alert Skin: COMMON NORMALS: no rashes or lesions noted GENERAL SKIN EXAM: no rashes or lesions noted and dry skin Course ED course: Nurse irrigated left ear and flushed out some earwax. I then reexamined the ear and saw no insect present in the TM was intact and no perforation seen. Patient says her ear feels normal now. Vital Signs: Vital signs: Vital Signs Temperature 97.6 F 09/04/19 10:45 Pulse Rate 74 09/04/19 10:45 Respiratory Rate 16 09/04/19 10:45 Blood Pressure 116/69 09/04/19 10:45 Pulse Oximetry 98 09/04/19 10:45 MDM - Ear MDM Narrative: Medical decision making narrative: Patient is a 39-year-old female comes to the ED with possible insect in the left ear. Physical exam showed some cerumen in the external canal both right and left ear, no insects seen in left ear and both tympanic membranes look normal and were not perforated. Nurse then flushed left ear and remove some cerumen. No insect was seen or removed during flush. I reexamined the left ear and sold no insect or foreign body. Patient stated her left ear feels normal now. Patient was discharged and told to follow-up with PCP in 7 to 10 days. Return to ED if symptoms worsen. She understood and agreed with plan. Discharge Plan Discharge Patient Disposition: Home, Self-Care Clinical Impression: Foreign body sensation in ear canal Qualifiers: Laterality: left Qualified Code(s): H61.892 - Other specified disorders of left external ear Condition: Stable Prescriptions: No Action Midol Max St Menstrual 500-60-15 mg tablet 2 tab PO Q6H PRNRF: 0 Tylenol Extra Strength 500 mg Tablet 500 mg PO Q4H PRN (Reason: Pain) RF: 0 iron 325 mg (65 mg iron) Tablet 325 mg PO DAILY RF: 0 hydrocodone-acetaminophen 5-325 mg tablet 1 tab PO Q6H PRN (Reason: pain) Qty: 10 RF: 0 diclofenac sodium 75 mg tablet,delayed release (DR/EC) 75 mg PO Q12H PRN (Reason: pain) Qty: 20 RF: 0 cyclobenzaprine 10 mg tablet 10 mg PO TID PRN (Reason: muscle spasm) Qty: 20 RF: 0 Discharge Orders: Discharge Order (Routine); Ordered 09/04/19 Ordered By: Cali Saeed Discharge Diet: Regular Discharge Activity: Resume usual activity Patient Instructions: Foreign Body - Ear Activity Restrictions/Additional Instructions: Follow-up with your PCP in 7 to 10 days for reevaluation. If symptoms worsen he can return to the ED or urgent care for reevaluation. Coding Level of Care Code ED Peoplesoft Administrator for Jake Fwd Exam Comprehensive
== END 2019-09-04 11:34 | disposition home or self-care (01) ==
PROVIDERS: Emergency Provider Physician Assistant
DX: H61.892 Other specified disorders of left external ear (principal); F17.210 Nicotine dependence, cigarettes, uncomplicated
CPT/HCPCS: 12345; 99282

== ENCOUNTER 2020-02-13 19:03 | Emergency (ER) | payer SELFPAY ==
[2020-02-13 19:22] VITALS: BP 122/81; PULSE 76; RESP 14; TEMP 36.6; O2SAT 100; BMI 22.7
--- NOTE | 2020-02-13 19:54 | W.ED.EXTPRO ---
HPI - Extremity Problem General: Chief complaint: Extremity Problem,Nontraumatic Stated complaint: right side hip/leg pain Time Seen by Provider: 02/13/20 19:53 History of Present Illness: HPI Narrative: Patient is a 39-year-old female comes to the ED with lower back pain that radiates down to her right leg. Patient says symptoms started approximately 2 weeks ago after doing a lot of lifting to help someone move. She says the pain has gotten worse and its sharp and burning pain that shoots down into the right upper leg. Weakness to extremities, pelvic anesthesia, bladder or bowel incontinence. Associated symptoms: Deny chest pain, fever(s) or rash Review of Systems Const: Denies: fever(s), chills or fatigue Eyes: Denies: change in vision or eye discomfort ENMT: Denies: throat pain, odynophagia, nasal discharge or nasal congestion Card: Denies: chest pain, palpitations, edema, swelling of feet/ankles, dyspnea on exertion or orthopnea Resp: Denies: dyspnea, productive cough or non-productive cough GI: Denies: abdominal pain, nausea, vomiting, diarrhea, constipation or hematochezia : Denies: flank pain, dysuria or hematuria Musc: Reports: back pain (radiates down into right leg); Denies: neck pain or extremity swelling Skin/Breast: Denies: rash or new lesions Neuro: Denies: headache(s), numbness in extremities or weakness in extremities PFS ED PFSH: Medical History Acute arthritis Scoliosis Surgical History History of section x 2, 1998, 2019 History of laparoscopy (~2004) With cyst removal from right ovary and take down of adhesions [place] teeth extracted Family History Grandmother Diabetes maternal and paternal Hypertension maternal and paternal Stroke maternal Heart disease maternal Family/Other Diabetes Maternal aunt Hyperlipidemia Maternal and paternal aunt and uncle Breast cancer Maternal aunt, diagnosed in her 60s Uterine cancer Maternal cousin, diagnosed at age 24 Mother Hyperlipidemia Hypertension Stroke Heart disease Father Hypertension Stroke Heart disease Sister Thyroid condition Denies family history of Colon cancer Ovarian cancer Anesthesia complication Social History Smoking and tobacco status: current every day smoker cigarettes Packs smoked per day: 1 [ Other cigarette details: Started smoking age 9 and smokes up to 1 pack daily ] Alcohol intake: current Alcohol intake frequency: holidays/special occasions only 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 [employer] Female Reproductive History: Date of last menstrual period: 08/19/19 Physical Exam Const: COMMON NORMALS: no acute distress, patient oriented x3 and alert GENERAL APPEARANCE: cooperative and comfortable HENMT: COMMON NORMALS: normocephalic HEAD & SCALP: normocephalic MOUTH: Normal oral and palatal mucosa present THROAT: posterior oropharynx normal and uvula midline Neck/C-Spine: COMMON NORMALS: supple GENERAL: Yes normal visual inspection Resp: COMMON NORMALS: normal respiratory effort, No retractions, No use of accessory muscles and clear to auscultation bilaterally AUSCULTATION: clear to auscultation bilaterally Cardio: COMMON NORMALS: regular rate, regular rhythm, S1 normal heart sound present, S2 normal heart sound present, No gallops present (Cardio), No clicks present (Cardio), No murmurs present (Cardio) and Peripheral pulses 2+ throughout RATE: regular rate RHYTHM: regular rhythm HEART SOUNDS: S1 normal heart sound present and S2 normal heart sound present PERIPHERAL PULSES: Peripheral pulses 2+ throughout GI: COMMON NORMALS: Normal to inspection, nondistended, normoactive bowel sounds present, Soft to palpation, non-tender and no masses PALPATION: Yes Soft to palpation : COMMON NORMALS: Yes no CVA tenderness BLADDER/KIDNEY EXAM: Yes no CVA tenderness Back/Pelvis: COMMON NORMALS: no CVA tenderness LUMBAR SPINE/LOWER BACK: Yes pain with ROM, Yes paraspinal muscle tenderness and Yes straight leg raise positive right Extremity: COMMON NORMALS: normal to inspection and no pedal edema Neuro: COMMON NORMALS: patient oriented x3 and moves all extremities SENSORIUM/ORIENTATION: Yes alert Skin: COMMON NORMALS: no rashes or lesions noted GENERAL SKIN EXAM: no rashes or lesions noted and dry skin Course Vital Signs: Vital signs: Vital Signs Temperature 98.1 F 02/13/20 20:11 Pulse Rate 72 02/13/20 20:55 Respiratory Rate 14 02/13/20 19:22 Blood Pressure 113/81 02/13/20 20:11 Pulse Oximetry 95 02/13/20 20:55 MDM - Extremity (Nontraumatic) MDM Narrative: Medical decision making narrative: Patient is a 39-year-old female comes to the ED with lower back pain that radiates down into the right leg. Physical exam shows some lumbar tenderness and positive right straight leg test. No cauda equina symptoms. Patient given Toradol and Solu-Medrol while here in the ED. Patient diagnosed with acute lumbar radiculopathy. She was sent home with a prescription for Medrol Dosepak and Robaxin. Return to ED precautions given. Follow-up with PCP in 7 to 10 days. Discharge Plan Discharge Patient Disposition: Home Clinical Impression: Acute lumbar radiculopathy Condition: Stable Prescriptions: New methocarbamol 750 mg tablet 750 mg PO Q8H Qty: 30 RF: 0 Medrol (Simeon) 4 mg tablets,dose pack See Rx Instructions .ROUTE .COMPLEX Qty: 21 RF: 0 ibuprofen 800 mg tablet 800 mg PO Q8H PRN (Reason: pain) Qty: 30 RF: [address] Action Midol Max St Menstrual 500-60-15 mg tablet 2 tab PO Q6H PRNRF: 0 Tylenol Extra Strength 500 mg Tablet 500 mg PO Q4H PRN (Reason: Pain) RF: 0 iron 325 mg (65 mg iron) Tablet 325 mg PO DAILY RF: 0 hydrocodone-acetaminophen 5-325 mg tablet 1 tab PO Q6H PRN (Reason: pain) Qty: 10 RF: 0 diclofenac sodium 75 mg tablet,delayed release (DR/EC) 75 mg PO Q12H PRN (Reason: pain) Qty: 20 RF: 0 cyclobenzaprine 10 mg tablet 10 mg PO TID PRN (Reason: muscle spasm) Qty: 20 RF: 0 Discharge Orders: Discharge Order (Routine); Ordered 02/13/20 Ordered By: Cali Saeed Discharge Diet: Regular Discharge Activity: Resume usual activity Patient Instructions: Lumbar Radiculopathy (ED) Activity Restrictions/Additional Instructions: Follow-up with medical provider as directed in 7-10 days. Take medications as prescribed. Apply cold pack and rest to allow for healing. Stretch lower back daily. Return to the ER or your medical provider if condition worsens. Please read and understand discharge instructions. If any questions, please ask. Discharge Date/Time: 02/13/20 20:50 Coding Level of Care Code ED Manager Library for Chg Fwd Exam Comprehensive
[2020-02-13 20:11] VITALS: BP 113/81; PULSE 85; TEMP 36.7; O2SAT 100
[2020-02-13] MEDS: orphenadrine 30 mg/mL Inj 2 mL 60 MG IM (20:35)
[2020-02-13] MEDS: ketorolac 60 mg/2 mL INJ IM (20:40)
[2020-02-13 20:55] VITALS: PULSE 72; O2SAT 95
== END 2020-02-13 20:50 | disposition home or self-care (01) ==
PROVIDERS: Emergency Provider Physician Assistant
DX: M54.16 Radiculopathy, lumbar region (principal); F17.210 Nicotine dependence, cigarettes, uncomplicated
CPT/HCPCS: 12345; 96372; 99281; 99283; J1885; J2360; J2930

== ENCOUNTER 2020-03-17 11:44 | Emergency (ER) | payer OTHER, SELFPAY ==
[2020-03-17 11:51] VITALS: BP 131/86; PULSE 90; RESP 18; TEMP 36.7; O2SAT 100; BMI 21.7
--- NOTE | 2020-03-17 12:10 | W.ED.EXTPRO ---
HPI - Extremity Problem General: Chief complaint: Extremity Injury, Lower Stated complaint: R HIP PAIN, GOING DOWN R LEG Time Seen by Provider: 03/17/20 12:09 History of Present Illness: HPI Narrative: Patient is a 39-year-old female comes to the ED with chronic lower back pain that radiates down into the right lower extremity. Patient has been having the symptoms for the past 3 months. She was seen here in the ED for same complaint on February 12. She says her symptoms improved for a little bit after treatment but now have worsened. She says she has right lumbar back pain that radiates down into back of her right leg. Pain is described as sharp and she rates an 8 out of 10. Denies any bladder or bowel incontinence, pelvic anesthesia or any weakness to her extremities. She is currently trying to get into primary care physician to establish care. She would like me to contact case management to try to set up a referral for her to see a PCP so she can have further outpatient management of lower back pain. Denies any acute injury to cause onset of symptoms. Associated symptoms: Deny chest pain, fever(s) or rash Review of Systems Const: Denies: fever(s), chills or fatigue Eyes: Denies: change in vision or eye discomfort ENMT: Denies: throat pain, odynophagia, nasal discharge or nasal congestion Card: Denies: chest pain, palpitations, edema, swelling of feet/ankles, dyspnea on exertion or orthopnea Resp: Denies: dyspnea, productive cough or non-productive cough GI: Denies: abdominal pain, nausea, vomiting, diarrhea, constipation or hematochezia : Denies: flank pain, dysuria or hematuria Musc: Reports: back pain; Denies: neck pain or extremity swelling Skin/Breast: Denies: rash or new lesions Neuro: Denies: headache(s), numbness in extremities or weakness in extremities PFS ED PFSH: Medical History Acute arthritis Scoliosis Surgical History History of section x 2, 1998, 2019 History of laparoscopy (~2004) With cyst removal from right ovary and take down of adhesions [place] teeth extracted Family History Grandmother Diabetes maternal and paternal Hypertension maternal and paternal Stroke maternal Heart disease maternal Family/Other Diabetes Maternal aunt Hyperlipidemia Maternal and paternal aunt and uncle Breast cancer Maternal aunt, diagnosed in her 60s Uterine cancer Maternal cousin, diagnosed at age 24 Mother Hyperlipidemia Hypertension Stroke Heart disease Father Hypertension Stroke Heart disease Sister Thyroid condition Denies family history of Colon cancer Ovarian cancer Anesthesia complication Social History Smoking and tobacco status: current every day smoker cigarettes Packs smoked per day: 1 [ Other cigarette details: Started smoking age 9 and smokes up to 1 pack daily ] Alcohol intake: current Alcohol intake frequency: holidays/special occasions only 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 Reproductive History: Date of last menstrual period: 03/17/20 Physical Exam Const: COMMON NORMALS: no acute distress, patient oriented x3, healthy appearing and alert GENERAL APPEARANCE: cooperative and comfortable HENMT: COMMON NORMALS: normocephalic HEAD & SCALP: normocephalic MOUTH: Normal oral and palatal mucosa present THROAT: posterior oropharynx normal and uvula midline Eye: COMMON NORMALS: Equal, round and reactive pupils present PUPIL: Yes Equal, round and reactive pupils present Neck/C-Spine: COMMON NORMALS: supple GENERAL: Yes normal visual inspection Resp: COMMON NORMALS: normal respiratory effort, No retractions, No use of accessory muscles and clear to auscultation bilaterally AUSCULTATION: clear to auscultation bilaterally Cardio: COMMON NORMALS: regular rate, regular rhythm, S1 normal heart sound present, S2 normal heart sound present, No gallops present (Cardio), No clicks present (Cardio), No murmurs present (Cardio) and Peripheral pulses 2+ throughout RATE: regular rate RHYTHM: regular rhythm HEART SOUNDS: S1 normal heart sound present and S2 normal heart sound present PERIPHERAL PULSES: Peripheral pulses 2+ throughout GI: COMMON NORMALS: Normal to inspection, nondistended, normoactive bowel sounds present, Soft to palpation, non-tender and no masses PALPATION: Yes Soft to palpation : COMMON NORMALS: Yes no CVA tenderness BLADDER/KIDNEY EXAM: Yes no CVA tenderness Back/Pelvis: COMMON NORMALS: no CVA tenderness LUMBAR SPINE/LOWER BACK: No lumbar spinal tenderness, Yes paraspinal muscle tenderness, Yes straight leg raise positive right and Yes other soft tissue findings Other lumbar soft tissue findings laterality: right Right other lumbar soft tissue findings details: tenderness Extremity: COMMON NORMALS: normal to inspection Neuro: COMMON NORMALS: patient oriented x3 and moves all extremities SENSORIUM/ORIENTATION: Yes alert Skin: GENERAL SKIN EXAM: dry skin Course Vital Signs: Vital signs: Vital Signs Temperature 98.1 F 03/17/20 11:51 Pulse Rate 90 03/17/20 11:51 Respiratory Rate 18 03/17/20 11:51 Blood Pressure 131/86 03/17/20 11:51 Pulse Oximetry 100 03/17/20 11:51 MDM - Extremity (Nontraumatic) MDM Narrative: Medical decision making narrative: Patient is a 39-year-old female comes to the ED with chronic lower back pain that radiates down right leg. No recent acute injury to cause symptoms. Denies any bladder or bowel incontinence, pelvic anesthesia, weakness to extremities. Patient needs referral to PCP so I placed an order with case management for patient to get referral. She was given Toradol and IM steroid injection while she was here in the ED. Sent home with a prescription for Medrol Dosepak and baclofen. I told her that someone should be contacting her in the next several days to set up an appointment with PCP. Return to ED precautions given. Patient understood agree with plan. Discharge Plan Discharge Patient Disposition: Home Clinical Impression: Lumbar radiculopathy Condition: Stable Prescriptions: New baclofen 10 mg tablet 10 mg PO TID Qty: 30 RF: 0 Medrol (Simeon) 4 mg tablets,dose pack See Rx Instructions .ROUTE .COMPLEX Qty: 21 RF: 0 No Action Midol Max St Menstrual 500-60-15 mg tablet 2 tab PO Q6H PRNRF: 0 Tylenol Extra Strength 500 mg Tablet 500 mg PO Q4H PRN (Reason: Pain) RF: 0 iron 325 mg (65 mg iron) Tablet 325 mg PO DAILY RF: 0 hydrocodone-acetaminophen 5-325 mg tablet 1 tab PO Q6H PRN (Reason: pain) Qty: 10 RF: 0 diclofenac sodium 75 mg tablet,delayed release (DR/EC) 75 mg PO Q12H PRN (Reason: pain) Qty: 20 RF: 0 cyclobenzaprine 10 mg tablet 10 mg PO TID PRN (Reason: muscle spasm) Qty: 20 RF: 0 methocarbamol 750 mg tablet 750 mg PO Q8H Qty: 30 RF: 0 Medrol (Simeon) 4 mg tablets,dose pack See Rx Instructions .ROUTE .COMPLEX Qty: 21 RF: 0 ibuprofen 800 mg tablet 800 mg PO Q8H PRN (Reason: pain) Qty: 30 RF: 0 Discharge Orders: Discharge ED (Routine); Ordered 03/17/20 Ordered By: Cali Saeed Discharge Diet: Regular Discharge Activity: Increase activity as tolerated Patient Instructions: Lumbar Radiculopathy (ED) Activity Restrictions/Additional Instructions: Follow-up with medical provider as directed. Take medications as prescribed. Return to the ER or your medical provider if condition worsens. Please read and understand discharge instructions. If any questions, please ask. Baclofen dosing shedule. Start with taking half a pill 3 times daily for 3 days, then titrate up by 5mg every 3 days untill you get to 20mg. Coding Level of Care Code ED Exceptional Student Education Aide for Jake Fwsusana Exam Comprehensive
[2020-03-17] MEDS: ketorolac 60 mg/2 mL INJ IM (12:51)
[2020-03-17] MEDS: dexamethasone 4 mg/mL INJ 10 MG IM (12:51)
--- NOTE | 2020-03-20 13:40 | DCPLANNER ---
legal department manager had message to speak with patient about getting established with a primary care physician. legal department manager spoke with patient, she stated that she does not have insurance at this time. legal department manager will mail patient both of the financial aide applications for the hospital to fill out and turn in. legal department manager offered to get patient established with a primary care, patient stated that she wanted to wait and see where she was at with the financial adviser application before scheduling an appointment.
== END 2020-03-17 13:03 | disposition home or self-care (01) ==
PROVIDERS: Emergency Provider Physician Assistant
DX: M54.16 Radiculopathy, lumbar region (principal); F17.210 Nicotine dependence, cigarettes, uncomplicated; M41.9 Scoliosis, unspecified
CPT/HCPCS: 12345; 96372; 99281; 99283; J1100; J1885

== ENCOUNTER 2020-08-17 21:40 | Emergency (ER) | payer MEDICAID, SELFPAY ==
[2020-08-17 21:51] VITALS: BP 150/95; PULSE 114; RESP 18; TEMP 36.6; O2SAT 96; BMI 22.7
--- NOTE | 2020-08-17 22:06 | W.ED.DENTAL ---
HPI - Dental/Oral General: Chief complaint: Dental/Oral Stated complaint: facial swelling Time Seen by Provider: 08/17/20 21:54 Source: patient Mode of arrival: ambulatory Limitations: no limitations History of Present Illness: HPI Narrative: Patient is a 40-year-old female who presents to ED today with a complaint of dental pain and facial swelling. Patient tells me a few days ago while eating she bit down and states her left third molar cracked and her filling fell out. Patient tells me she has been having severe pain since then and has noticed some mild left-sided facial swelling. She has not noticed any submandibular swelling, she is not having any trouble swallowing/eating/drinking no fevers. Patient states she did contact a dentist who told her they would see her following a round of antibiotics. MD Complaint: tooth pain Onset (ago): day(s) Duration: constant Severity: severe Relieving factors: nothing Exacerbating factors: chewing Context: history of dental caries Associated symptoms: Denies ear or mastoid pain, fever(s) or odynophagia Treatment prior to arrival: topical analgesic and oral analgesic Review of Systems Const: Denies: fever(s), chills, body aches, fatigue or malaise Eyes: Denies: change in vision ENMT: Reports: dental pain; Denies: odynophagia, swelling of lips/tongue, ear or mastoid pain, nasal discharge, nasal congestion, post nasal drip or sinus pain Card: Denies: chest pain GI: Denies: nausea or vomiting Musc: Denies: neck pain Neuro: Denies: headache(s) [facility] ED PFSH: Medical History (Updated 08/17/20 @ 22:05 by FLORENCE Jones) Acute arthritis Scoliosis Surgical History History of section x 2, 1998, 2019 History of laparoscopy (~2004) With cyst removal from right ovary and take down of adhesions [place] teeth extracted Family History Grandmother Diabetes maternal and paternal Hypertension maternal and paternal Stroke maternal Heart disease maternal Family/Other Diabetes Maternal aunt Hyperlipidemia Maternal and paternal aunt and uncle Breast cancer Maternal aunt, diagnosed in her 60s Uterine cancer Maternal cousin, diagnosed at age 24 Mother Hyperlipidemia Hypertension Stroke Heart disease Father Hypertension Stroke Heart disease Sister Thyroid condition Denies family history of Colon cancer Ovarian cancer Anesthesia complication Social History Smoking and tobacco status: current every day smoker cigarettes Packs smoked per day: 1 [ Other cigarette details: Started smoking age 9 and smokes up to 1 pack daily ] Alcohol intake: current Alcohol intake frequency: holidays/special occasions only 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 [employer] Female Reproductive History: Date of last menstrual period: 03/17/20 Physical Exam Const: COMMON NORMALS: no acute distress, average body habitus, patient oriented x3, no limitations, healthy appearing, alert and well nourished GENERAL APPEARANCE: cooperative ORIENTATION/CONSCIOUSNESS: Yes awake, Yes oriented to person, Yes oriented to place and Yes oriented to time HENMT: COMMON NORMALS: normocephalic, atraumatic, hearing grossly normal bilaterally, external ears normal, EAC's normal, TM's normal bilaterally, Normal external nose present, Normal nasal mucous membranes and turbinates present, moist oral mucous membranes, oropharynx normal and gingiva normal HEAD & SCALP: normal to inspection, normocephalic and atraumatic FACE & SINUS: sinuses nontender FACE & SINUS IMAGES: 1. tenderness and mild swelling; no abscess; no facial cellulitis NOSE: Normal external nose present and Normal nasal mucous membranes and turbinates present EXTERNAL EAR: Yes external ears normal EXTERNAL AUDITORY CANAL: EAC's normal TYMPANIC MEMBRANE: TM's normal bilaterally MOUTH: Normal oral and palatal mucosa present, lip normal and tongue normal TEETH & GINGIVA: Yes poor dentition TEETH & GINGIVA IMAGES: 1. cracked broken molar with severe caries THROAT: posterior oropharynx normal, tonsils normal and uvula midline Neck/C-Spine: COMMON NORMALS: full ROM and no lymphadenopathy GENERAL: Yes normal visual inspection Neuro: COMMON NORMALS: patient oriented x3 SENSORIUM/ORIENTATION: Yes alert, Yes oriented to person, Yes oriented to place and Yes oriented to time Course Vital Signs: Vital signs: Vital Signs Temperature 97.8 F 08/17/20 21:51 Pulse Rate 114 H 08/17/20 21:51 Respiratory Rate 18 08/17/20 21:51 Blood Pressure 150/95 08/17/20 21:51 Pulse Oximetry 96 08/17/20 21:51 Discharge Plan Discharge Patient Disposition: Home Clinical Impression: Dental caries, Pain, dental Condition: Stable Prescriptions: New penicillin V potassium 500 mg tablet 500 mg PO Q8H 7 Days Qty: 21 RF: 0 tramadol 50 mg tablet 50 mg PO Q6H PRN (Reason: pain) Qty: 10 RF: 0 Discontinued acetaminophen [Tylenol Extra Strength] 500 mg Tablet 500 mg PO Q4H PRN (Reason: Pain) RF: 0 hydrocodone-acetaminophen 5-325 mg tablet 1 tab PO Q6H PRN (Reason: pain) Qty: 10 RF: [address] Action Midol Max St Menstrual 500-60-15 mg tablet 2 tab PO Q6H PRNRF: 0 iron 325 mg (65 mg iron) Tablet 325 mg PO DAILY RF: 0 diclofenac sodium 75 mg tablet,delayed release (DR/EC) 75 mg PO Q12H PRN (Reason: pain) Qty: 20 RF: 0 cyclobenzaprine 10 mg tablet 10 mg PO TID PRN (Reason: muscle spasm) Qty: 20 RF: 0 methocarbamol 750 mg tablet 750 mg PO Q8H Qty: 30 RF: 0 Medrol (Simeon) 4 mg tablets,dose pack See Rx Instructions .ROUTE .COMPLEX Qty: 21 RF: 0 ibuprofen 800 mg tablet 800 mg PO Q8H PRN (Reason: pain) Qty: 30 RF: 0 baclofen 10 mg tablet 10 mg PO TID Qty: 30 RF: 0 Medrol (Simeon) 4 mg tablets,dose pack See Rx Instructions .ROUTE .COMPLEX Qty: 21 RF: 0 Discharge Orders: Discharge ED (Routine); Ordered 08/17/20 Ordered By: Sarah Fenton Patient Instructions: Dental Caries (ED), Toothache (ED), Opioid Safety, Dental Abscess Activity Restrictions/Additional Instructions: [facility] is committed to fighting the nationwide opiate epidemic. We are providing ALL patients with information regarding opiate safety. If you received opiate pain medication during your stay or if you received a prescription for opiate pain medication-please review this handout. If not, you may disregard. Thank you. Coding Level of Care Code ED Digital Account Executive for Jake Edmonds
[2020-08-17] MEDS: TRAMadol 50 mg Tablet PO (22:12)
== END 2020-08-17 22:44 | disposition home or self-care (01) ==
PROVIDERS: Emergency Provider Physician Assistant
DX: K02.9 Dental caries, unspecified (principal); F17.210 Nicotine dependence, cigarettes, uncomplicated; M41.9 Scoliosis, unspecified
CPT/HCPCS: 99283

== ENCOUNTER 2020-08-22 12:08 | Emergency (ER) | payer MEDICAID, SELFPAY ==
[2020-08-22 12:14] VITALS: BP 158/100; PULSE 93; RESP 16; TEMP 36.5; O2SAT 97; BMI 22.7
--- NOTE | 2020-08-22 13:13 | W.ED.DENTAL ---
HPI - Dental/Oral General: Chief complaint: Dental/Oral Stated complaint: pain on right side of face Time Seen by Provider: 08/22/20 13:04 Source: patient Mode of arrival: ambulatory Limitations: no limitations History of Present Illness: HPI Narrative: Patient is a 40-year-old male who returns to the ED for complaints of dental pain. Patient was seen by myself several days ago for identical symptoms. She was placed on Pen VK. She states she has been taking this as prescribed and has approximately 4 tablets left. She had plans to follow-up with a dentist but states she is having trouble finding somewhere that takes her insurance. She tells me she does have an appointment scheduled for next Friday. She is returning to the ED because pain has continued to be severe. She has not noticed any facial swelling or swelling to her neck. She is still able to eat, drink, control secretions. She has not been running fevers. MD Complaint: tooth pain Teeth map: 1. Duration: constant Severity: severe Relieving factors: nothing Context: history of dental caries and poor dental care Associated symptoms: Reports ear or mastoid pain (L); Denies fever(s) or odynophagia Treatment prior to arrival: oral analgesic Review of Systems Const: Denies: fever(s), chills, body aches, fatigue or malaise Eyes: Denies: change in vision, blurry vision, photophobia, eye discomfort, eye discharge, floaters or seeing flashes ENMT: Reports: dental pain and ear or mastoid pain (L); Denies: throat pain, enlarged tonsils, odynophagia, hoarseness, mouth pain, swelling of lips/tongue, oral sores, ear discharge, change in hearing, disequilibrium, nasal discharge, nasal congestion, epistaxis, post nasal drip or sinus pain Card: Denies: chest pain Resp: Denies: dyspnea GI: Denies: nausea or vomiting Musc: Denies: neck pain Skin/Breast: Denies: rash Neuro: Denies: headache(s), numbness in extremities, weakness in extremities, sensory changes, dizziness or vertigo [facility] ED PFSH: Medical History (Updated 08/22/20 @ 13:14 by FLORENCE Jones) Acute arthritis Scoliosis Surgical History History of section x 2, 1998, 2019 History of laparoscopy (~2004) With cyst removal from right ovary and take down of adhesions [place] teeth extracted Family History Grandmother Diabetes maternal and paternal Hypertension maternal and paternal Stroke maternal Heart disease maternal Family/Other Diabetes Maternal aunt Hyperlipidemia Maternal and paternal aunt and uncle Breast cancer Maternal aunt, diagnosed in her 60s Uterine cancer Maternal cousin, diagnosed at age 24 Mother Hyperlipidemia Hypertension Stroke Heart disease Father Hypertension Stroke Heart disease Sister Thyroid condition Denies family history of Colon cancer Ovarian cancer Anesthesia complication Social History Smoking and tobacco status: current every day smoker cigarettes Packs smoked per day: 1 [ Other cigarette details: Started smoking age 9 and smokes up to 1 pack daily ] Alcohol intake: current Alcohol intake frequency: holidays/special occasions only 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 [employer] Female Reproductive History: Date of last menstrual period: 08/22/20 Physical Exam Const: COMMON NORMALS: no acute distress, average body habitus, patient oriented x3, no limitations, healthy appearing, alert and well nourished GENERAL APPEARANCE: cooperative ORIENTATION/CONSCIOUSNESS: Yes awake, Yes oriented to person, Yes oriented to place and Yes oriented to time HENMT: COMMON NORMALS: normocephalic, atraumatic, hearing grossly normal bilaterally, external ears normal, EAC's normal, TM's normal bilaterally, Normal external nose present, Normal nasal mucous membranes and turbinates present, moist oral mucous membranes and oropharynx normal HEAD & SCALP: normal to inspection, normocephalic and atraumatic FACE & SINUS: normal facial exam and sinuses nontender NOSE: Normal external nose present and Normal nasal mucous membranes and turbinates present EXTERNAL EAR: Yes external ears normal EXTERNAL AUDITORY CANAL: EAC's normal TYMPANIC MEMBRANE: TM's normal bilaterally TEETH & GINGIVA: Yes poor dentition TEETH & GINGIVA IMAGES: 1. reports tenderness; dental caries present; no abscess THROAT: posterior oropharynx normal and tonsils normal Eye: COMMON NORMALS: Equal, round and reactive pupils present and EOMs intact bilaterally GENERAL EYE: appearance normal, both eyes and all related structures PUPIL: Yes Equal, round and reactive pupils present Neck/C-Spine: COMMON NORMALS: full ROM, no lymphadenopathy and no meningeal signs GENERAL: No anterior neck swelling and No submandibular swelling Neuro: CRYSTAL COMA SCALE: document GCS findings Crystal coma scale eye opening: Spontaneous Fine coma scale verbal response: Orientated Crystal coma scale motor response: Obey commands Fine coma scale total score: 15 COMMON NORMALS: patient oriented x3 and CN's II-XII intact bilaterally SENSORIUM/ORIENTATION: Yes alert, Yes oriented to person, Yes oriented to place and Yes oriented to time MENINGEAL SIGNS: Yes no meningeal signs Skin: COMMON NORMALS: no rashes or lesions noted GENERAL SKIN EXAM: no rashes or lesions noted Course Vital Signs: Vital signs: Vital Signs Temperature 97.7 F 08/22/20 12:14 Pulse Rate 93 08/22/20 12:14 Respiratory Rate 16 08/22/20 12:14 Blood Pressure 158/100 08/22/20 12:14 Pulse Oximetry 97 08/22/20 12:14 MDM - Dental/Oral MDM Narrative: Medical decision making narrative: Patient will be given small amount of Tylenol 3 to help with pain. I did explain to her that we cannot keep giving her controlled pain medications for dental pain from the ED. She verbalized understanding. Discussed things that should prompt a return to ED visit but otherwise she needs to follow up with a dentist. Discharge Plan Discharge Patient Disposition: Home Clinical Impression: Dental caries, Toothache Condition: Stable Prescriptions: New acetaminophen-codeine 300-30 mg tablet 1 tab PO Q4H PRN (Reason: pain) Qty: 14 RF: 0 Discontinued tramadol 50 mg tablet 50 mg PO Q6H PRN (Reason: pain) Qty: 10 RF: [address] Max St Menstrual 500-60-15 mg tablet 2 tab PO Q6H PRNRF: 0 iron 325 mg (65 mg iron) Tablet 325 mg PO DAILY RF: 0 diclofenac sodium 75 mg tablet,delayed release (DR/EC) 75 mg PO Q12H PRN (Reason: pain) Qty: 20 RF: 0 cyclobenzaprine 10 mg tablet 10 mg PO TID PRN (Reason: muscle spasm) Qty: 20 RF: 0 methocarbamol 750 mg tablet 750 mg PO Q8H Qty: 30 RF: 0 Medrol (Simeon) 4 mg tablets,dose pack See Rx Instructions .ROUTE .COMPLEX Qty: 21 RF: 0 ibuprofen 800 mg tablet 800 mg PO Q8H PRN (Reason: pain) Qty: 30 RF: 0 baclofen 10 mg tablet 10 mg PO TID Qty: 30 RF: 0 Medrol (Simeon) 4 mg tablets,dose pack See Rx Instructions .ROUTE .COMPLEX Qty: 21 RF: 0 penicillin V potassium 500 mg tablet 500 mg PO Q8H 7 Days Qty: 21 RF: 0 Discharge Orders: Discharge ED (Routine); Ordered 08/22/20 Ordered By: Sarah Fenton Patient Instructions: Dental Caries (ED), Toothache (ED) Coding Level of Care Code ED Fuel Manager for Chg Fwd Exam Detailed
== END 2020-08-22 13:32 | disposition home or self-care (01) ==
PROVIDERS: Emergency Provider Physician Assistant
DX: K02.9 Dental caries, unspecified (principal); M41.9 Scoliosis, unspecified; F17.210 Nicotine dependence, cigarettes, uncomplicated
CPT/HCPCS: 99281

== ENCOUNTER 2020-11-04 10:57 | Emergency (ER) | payer MEDICAID, SELFPAY ==
[2020-11-04 11:17] VITALS: BP 149/92; PULSE 98; RESP 16; TEMP 37; O2SAT 99; BMI 28.1
--- NOTE | 2020-11-04 12:05 | ED_ITS ---
HPI - Dental/Oral General: Chief complaint: Dental/Oral Stated complaint: dental pain Time Seen by Provider: 11/04/20 12:00 Source: patient Mode of arrival: ambulatory Limitations: no limitations History of Present Illness: HPI Narrative: Patient is a nice 40-year-old female who presents to ED today with complaint of left lower molar tooth pain. Patient states she had a filling to this tooth recently but states the filling broke. She has an upcoming appointment at [facility] for repair however she was told she needs to be on antibiotics prior to this procedure as they have told her they most likely will extract the tooth. MD Complaint: tooth pain Location: Tooth # Teeth map: 1. Onset (ago): day(s) Duration: constant Severity: severe Relieving factors: nothing Exacerbating factors: nothing Context: history of dental caries Associated symptoms: Reports no associated symptoms; Denies fever(s) or odynophagia Review of Systems Const: Denies: fever(s), chills, body aches, fatigue or malaise ENMT: Reports: dental pain; Denies: throat pain, odynophagia, hoarseness, swelling of lips/tongue or oral sores Card: Denies: chest pain Resp: Denies: dyspnea GI: Denies: nausea or vomiting Musc: Denies: neck pain Skin/Breast: Denies: rash Neuro: Denies: headache(s) [facility] ED PFSH: Medical History (Updated 11/04/20 @ 12:05 by FLORENCE Jones) Acute arthritis Scoliosis Surgical History History of section x 2, 1998, 2018 History of laparoscopy (~2004) With cyst removal from right ovary and take down of adhesions [place] teeth extracted Family History Grandmother Diabetes maternal and paternal Hypertension maternal and paternal Stroke maternal Heart disease maternal Family/Other Diabetes Maternal aunt Hyperlipidemia Maternal and paternal aunt and uncle Breast cancer Maternal aunt, diagnosed in her 60s Uterine cancer Maternal cousin, diagnosed at age 24 Mother Hyperlipidemia Hypertension Stroke Heart disease Father Hypertension Stroke Heart disease Sister Thyroid condition Denies family history of Colon cancer Ovarian cancer Anesthesia complication Social History Smoking and tobacco status: current every day smoker cigarettes Packs smoked per day: 1 [ Other cigarette details: Started smoking age 9 and smokes up to 1 pack daily ] Alcohol intake: current Alcohol intake frequency: holidays/special occasions only 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[employer] Female Reproductive History: Date of last menstrual period: 08/22/20 Physical Exam Const: COMMON NORMALS: no acute distress, average body habitus, patient oriented x3, no limitations, healthy appearing, alert and well nourished GENERAL APPEARANCE: cooperative ORIENTATION/CONSCIOUSNESS: Yes awake, Yes oriented to person, Yes oriented to place and Yes oriented to time HENMT: COMMON NORMALS: moist oral mucous membranes, oropharynx normal and gingiva normal FACE & SINUS: normal facial exam; no erythema and no edema TEETH & GINGIVA: Yes caries and Yes poor dentition THROAT: posterior oropharynx normal, tonsils normal and uvula midline Neck/C-Spine: COMMON NORMALS: no lymphadenopathy Neuro: COMMON NORMALS: patient oriented x3 SENSORIUM/ORIENTATION: Yes alert, Yes oriented to person, Yes oriented to place and Yes oriented to time Course Vital Signs: Vital signs: Vital Signs Temperature 98.6 F 11/04/20 11:17 Pulse Rate 98 11/04/20 11:17 Respiratory Rate 16 11/04/20 11:17 Blood Pressure 149/92 11/04/20 11:17 Pulse Oximetry 99 11/04/20 11:17 Discharge Plan Discharge Patient Disposition: Home Clinical Impression: Dental caries, Toothache Condition: Stable Prescriptions: New penicillin V potassium 500 mg tablet 500 mg PO Q8H 7 Days Qty: 21 RF: [address] Action Midol Max St Menstrual 500-60-15 mg tablet 2 tab PO Q6H PRNRF: 0 iron 325 mg (65 mg iron) Tablet 325 mg PO DAILY RF: 0 diclofenac sodium 75 mg tablet,delayed release (DR/EC) 75 mg PO Q12H PRN (Reason: pain) Qty: 20 RF: 0 cyclobenzaprine 10 mg tablet 10 mg PO TID PRN (Reason: muscle spasm) Qty: 20 RF: 0 methocarbamol 750 mg tablet 750 mg PO Q8H Qty: 30 RF: 0 Medrol (Simeon) 4 mg tablets,dose pack See Rx Instructions .ROUTE .COMPLEX Qty: 21 RF: 0 ibuprofen 800 mg tablet 800 mg PO Q8H PRN (Reason: pain) Qty: 30 RF: 0 baclofen 10 mg tablet 10 mg PO TID Qty: 30 RF: 0 Medrol (Simeon) 4 mg tablets,dose pack See Rx Instructions .ROUTE .COMPLEX Qty: 21 RF: 0 acetaminophen-codeine 300-30 mg tablet 1 tab PO Q4H PRN (Reason: pain) Qty: 14 RF: 0 Discharge Orders: Discharge ED (Routine); Ordered 11/04/20 Ordered By: Sarah Fenton Referrals: Carmen Mondragon MD [Primary Care Provider] - Patient Instructions: Dental Caries (ED), Toothache (ED) Coding Level of Care Code ED Ge[employer] Laboratory Chief for Jake Edmonds
== END 2020-11-04 12:16 | disposition home or self-care (01) ==
PROVIDERS: Emergency Provider Physician Assistant; PCP Family Medicine
DX: K02.9 Dental caries, unspecified (principal); F17.210 Nicotine dependence, cigarettes, uncomplicated
CPT/HCPCS: 99281

== ENCOUNTER → 2020-11-16 12:58 | Outpatient (BNVA) | payer MEDICAID, SELFPAY | PROVIDERS: PCP Family Medicine; Visit Provider Surgery | DX: Z11.52 Encounter for screening for COVID-19 (principal) | CPT/HCPCS: 87635 ==

== ENCOUNTER → 2020-11-20 10:02 | Outpatient (BNVA) | payer MEDICAID, SELFPAY | PROVIDERS: PCP Family Medicine; Visit Provider Surgery | DX: Z20.822 Contact with and (suspected) exposure to COVID-19 (principal) | CPT/HCPCS: 87635 ==

== ENCOUNTER 2020-11-22 09:05 | Day surgery (SDC) | payer MEDICAID, SELFPAY ==
[2020-11-21 11:12] VITALS: BMI 28.1
[2020-11-22] VITALS (7 sets, daily range): BP systolic 96–153; BP diastolic 64–95; PULSE 74–96; RESP 17–19; TEMP 36.4–37; O2SAT 96–100
[2020-11-22] MEDS: sodium chloride 0.9% 1,000 ML 30 ML IV (09:44)
--- NOTE | 2020-11-22 09:46 | W.PM.OPSUD ---
Surgery/Procedure H&P Update DATE OF PROCEDURE: November 22, 2020 DATE H&P PERFORMED: 11/13/20 H&P UPDATE INFORMATION: I have reviewed H&P completed within last 30 days, I have examined patient prior to procedure and No changes to prior documentation PREOP DIAGNOSIS: Subcutaneous mass right shoulder PLANNED PROCEDURE: Operation Date: 11/22/20 10:30 Proposed Procedures p excision of lipoma right side of neck 56187 R22.9(Right) - Ladarius Graham MD
[2020-11-22 09:47] LABS: OR HCG Qualitative Urine Negative (Negative)
--- NOTE | 2020-11-22 09:51 | ANES.PREANE2 ---
Pre-Anesthetic Assessment Pre-Anesthetic Assessment: Height/Weight: Height 1.7 m Weight 81.647 kg Temp Pulse Resp BP Pulse Ox 98.6 F 96 18 153/94 96 11/22/20 09:34 11/22/20 09:34 11/22/20 09:34 11/22/20 09:34 11/22/20 09:34 Preop Diagnosis: Subcutaneous mass right shoulder Proposed Procedure: Operation Date: 11/22/20 10:30 Proposed Procedures p excision of lipoma right side of neck 76331 R22.9(Right) - Ladarius Graham MD Familial anesthetic complications: none Was Beta Esvin taken within 24 hours: N/A Was Clonidine taken within 24 hours: N/A Last intake: Intake Last Liquid Date 11/22/20 Last Liquid Time 00:00 Last Solid Date 11/21/20 Last Solid Time 22:00 Social: Social History: Tobacco and No alcohol Exam: Pre-Anes Outpt Exam: alert, oriented x 3, clear to auscultation bilaterally and regular rate & rhythm Airway: Cervical ROM: WNL MP: 2 Dentition: Chipped Additional comments: periodontal disease Anesthetic Plan: ASA status: 1 Anesthesia: General and MAC Risk of > 500 ml blood loss (7ml/kg in children): No Meds/Allergies Current Medications: Current Medications Generic Name Dose Route Start Last Admin Trade Name Freq PRN Reason Stop Dose Admin Sodium Chloride 1,000 mls @ 30 ml s/hr 11/22/20 09:30 11/22/20 09:44 Sodium Chloride 0.9% IV 11/23/20 09:29 30 mls/hr .Q24H ELIZABETH Administration PFSH Anesthesia PFSH: Medical History (Updated 11/13/20 @ 09:25 by Ladarius Graham MD) Acute arthritis Anemia Scoliosis Surgical History (Updated 11/22/20 @ 09:48 by Ladarius Graham MD) H/O excision of mass (11/22/20) Right shoulder History of section x 2, 1998, 2018 History of laparoscopy (~2004) With cyst removal from right ovary and take down of adhesions [place] teeth extracted Family History Grandmother Diabetes maternal and paternal Hypertension maternal and paternal Stroke maternal Heart disease maternal Family/Other Diabetes Maternal aunt Hyperlipidemia Maternal and paternal aunt and uncle Breast cancer Maternal aunt, diagnosed in her 60s Uterine cancer Maternal cousin, diagnosed at age 24 Mother Hyperlipidemia Hypertension Stroke Heart disease Father Hypertension Stroke Heart disease Sister Thyroid condition Denies family history of Colon cancer Ovarian cancer Anesthesia complication Social History Smoking and tobacco status: current every day smoker cigarettes Packs smoked per day: 1 [ Other cigarette details: Started smoking age 9 and smokes up to 1 pack daily ] Alcohol intake: current Alcohol intake frequency: holidays/special occasions only 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
[2020-11-22] MEDS: lidocaine 1% INJ 20 mL SUBCUT (11:55)
--- NOTE | 2020-11-22 12:23 | PM.OP ---
Operative Report Date of procedure: November 22, 2020 Pre-op Diagnosis: Subcutaneous mass right shoulder Post-op Diagnosis: 5 x 7 cm lipoma right shoulder Procedure Done: Excision of subcutaneous mass right shoulder Specimens removed/disposition: Subcutaneous mass right shoulder Surgeon: Ladarius Graham Anesthesia: MAC Condition: stable Disposition: PACU Procedure: The patient was taken to the operating room and placed in the left lateral position under MAC after IV antibiotic had been administered. The right shoulder around the palpable mass was prepped and draped in a sterile manner. A 5 cm incision was made using 15 blade, subcutaneous tissue was divided using electrocautery and the 5 x 7cm lipoma was dissected free from the surrounding subcutaneous tissue and underlying muscular fascia. Wound was irrigated with saline, hemostasis ensured and subcutaneous tissue was approximated using running 3-0 Vicryl suture and skin was closed using running subcuticular 4-0 Monocryl suture and surgical glue. Pressure dressings were applied. Patient was transferred to recovery room in stable condition.
[2020-11-22] MEDS: acetaminophen-codeine 300-30mg Tablet 1 TAB PO (13:14)
--- NOTE | 2020-11-22 13:42 | ANE.PACU2 ---
Inpatient post-anesthesia follow up: Airway intact: Yes Vital signs: Temperature 97.6 F Pulse Rate 80 Respiratory Rate 19 Blood Pressure 133/89 Pulse Oximetry 100 Oxygen Delivery Me thod Room Air Oxygen Flow Rate Fraction of Inspir ed Oxygen Hydration adequate: Yes Nausea and vomiting: No Pain level: 2 Mental status: Baseline
== END 2020-11-22 13:55 | disposition home or self-care (01) ==
PROVIDERS: Anesthesiology; PCP Family Medicine; Visit Provider Surgery
PROC: (CPT 11406; principal; 2020-11-22 10:20)
DX: D17.21 Benign lipomatous neoplasm of skin and subcutaneous tissue of right arm (principal); F17.210 Nicotine dependence, cigarettes, uncomplicated
CPT/HCPCS: 11406; 12032; 81025; 84703; 88304; J0690; J2704; J3010; J3490; J7030

== ENCOUNTER 2020-12-01 12:46 | Outpatient (CLI) | payer MEDICAID, SELFPAY ==
--- NOTE | 2020-12-01 12:58 | MM_ITS ---
WS: [id number] SCREENING DIGITAL MAMMOGRAM WITH CAD HISTORY: SCREENING COMPARISON: None available. Bilateral CC and MLO views submitted. Computer aided detection analyzed. Breast composition: The breasts are heterogeneously dense, which may obscure small masses. Seen on th e LEFT MLO is an area of increased density and asymmetry posterior just above the nipple line which n eeds further evaluation. Otherwise no abnormality. MM/[place] [id number] IMPRESSION: BI-RADS: 0-Incomplete: Need additional imaging evaluation FOLLOW UP: Need Additional Imaging LEFT breast: Spot compression views (MLO). True ML. Ultrasound to follow if abn ormality persists.
== END 2020-12-01 12:47 | disposition home or self-care (01) ==
LOC: RADSHAW 12:53
PROVIDERS: PCP Family Medicine; Visit Provider Nurse Practitioner Family
DX: Z12.31 Encounter for screening mammogram for malignant neoplasm of breast (principal)
CPT/HCPCS: 77067

== ENCOUNTER 2020-12-05 19:39 | Emergency (ER) | payer MEDICAID, SELFPAY ==
[2020-12-05 19:57] VITALS: BP 144/86; PULSE 97; RESP 19; TEMP 37.4; O2SAT 97; BMI 29.2
--- NOTE | 2020-12-05 20:17 | ED_ITS ---
HPI - Wound/Laceration General: Chief Complaint: Wound/Laceration Stated Complaint: Incision From Surgury Infected-Rt Shoulder Time Seen by Provider: 12/05/20 20:17 History of Present Illness: HPI narrative: Patient comes in for tenderness at her surgical site from a lipoma removal to her back. Patient appears well. Patient appears in no acute distress. Patient also reports feeling some of the thread coming out of the wound. Review of Systems General: Reports: 10 or more systems reviewed and unremarkable except in HPI and below Skin/Breast: Reports: other (Wound discomfort.) PFSH ED PFSH: Medical History (Updated 12/05/20 @ 20:24 by ELIZABETH Houston) Acute arthritis Anemia Scoliosis Surgical History (Updated 12/01/20 @ 14:50 by Ladarius Graham MD) H/O excision of mass (11/22/20) Right shoulder History of section x 2, 1998, 2018 History of laparoscopy (~2004) With cyst removal from right ovary and take down of adhesions [place] teeth extracted Family History Grandmother Diabetes maternal and paternal Hypertension maternal and paternal Stroke maternal Heart disease maternal Family/Other Diabetes Maternal aunt Hyperlipidemia Maternal and paternal aunt and uncle Breast cancer Maternal aunt, diagnosed in her 60s Uterine cancer Maternal cousin, diagnosed at age 24 Mother Hyperlipidemia Hypertension Stroke Heart disease Father Hypertension Stroke Heart disease Sister Thyroid condition Denies family history of Colon cancer Ovarian cancer Anesthesia complication Social History Alcohol intake: current Alcohol intake frequency: holidays/special occasions only 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[employer] Female Reproductive History: Date of last menstrual period: 11/14/20 Physical Exam Const: COMMON NORMALS: no acute distress and patient oriented x3 GENERAL APPEARANCE: cooperative HENMT: COMMON NORMALS: normocephalic and Normal external nose present HEAD & SCALP: normal to inspection and normocephalic NOSE: Normal external nose present Eye: GENERAL EYE: appearance normal, both eyes and all related structures Neck/C-Spine: COMMON NORMALS: full ROM Resp: COMMON NORMALS: normal respiratory effort EFFORT & INSPECTION: Yes able to speak in complete sentences Cardio: COMMON NORMALS: regular rate RATE: regular rate GI: COMMON NORMALS: non-tender Back/Pelvis: OTHER: Patient is a 3 cm area of redness at the area of incision from surgery. Patient also has an exposed suture that is approximately 1 cm outside wound. Extremity: COMMON NORMALS: normal to inspection Neuro: COMMON NORMALS: patient oriented x3 and moves all extremities Psych: COMMON NORMALS: mental status grossly normal and cooperative Skin: COMMON NORMALS: no rashes or lesions noted GENERAL SKIN EXAM: no rashes or lesions noted Course Vital Signs: Vital signs: Vital Signs Temperature 99.3 F 12/05/20 19:57 Pulse Rate 97 12/05/20 19:57 Respiratory Rate 19 H 12/05/20 19:57 Blood Pressure 144/86 12/05/20 19:57 Pulse Oximetry 97 12/05/20 19:57 MDM - Wound/Laceration MDM Narrative: Medical decision making narrative: Patient comes in today for complaints of redness and tenderness to the surgical wound from a lipoma removal to her right upper back. On exam there is an incision line to the right upper back that is well approximated. Patient does have about a 1 cm exposed thread. There is some tenderness and about a 3 cm surrounding area of redness to the wound site. Differential diagnosis includes wound infection, seroma, local reaction. We will cover patient with some Augmentin for a possible surgical wound infection. Surgical thread was trimmed to the skin. Patient was recommended to continue with routine care and follow-up with surgeon at next available appointment. Discharge Plan Discharge Patient Disposition: Home Clinical Impression: Wound cellulitis Condition: Stable Prescriptions: New Augmentin 875-125 mg tablet 1 tab PO BID Qty: 14 RF: [address] Midol Max St Menstrual 500-60-15 mg tablet 2 tab PO Q6H PRN (Reason: Pain) RF: 0 ferrous sulfate [iron] 325 mg (65 mg iron) Tablet 325 mg PO DAILY RF: 0 ibuprofen 800 mg tablet 800 mg PO Q8H PRN (Reason: pain) Qty: 30 RF: 0 Zofran 4 mg tablet 4 mg PO Q6H PRN (Reason: nausea and vomiting) Qty: 20 RF: 0 acetaminophen-codeine 300-30 mg tablet 1 tab PO Q8H PRN (Reason: pain) Qty: 20 RF: 0 Colace 100 mg capsule 100 mg PO BID Qty: 30 RF: 0 Discharge Orders: Discharge ED (Routine); Ordered 12/05/20 Ordered By: Marcos Mcmillan Referrals: Carmen Mondragon MD [Primary Care Provider] - Discharge Diet: Usual diet Discharge Activity: Increase activity as tolerated Patient Instructions: Wound Infection (ED), Opioid Safety Activity Restrictions/Additional Instructions: Take antibiotic as directed. Follow-up with Dr. Graham at next available appointment for further evaluation and treatment. Return to the ER for high fever or worsening symptoms. Coding Level of Care Code ED Hot[employer] Superintendent for Chg Fwd Exam Comprehensive
[2020-12-05] MEDS: amoxicillin-clav 875-125 mg Tablet 1 TAB PO (20:31)
== END 2020-12-05 20:30 | disposition home or self-care (01) ==
LOC: ER 22:10
PROVIDERS: Emergency Provider Nurse Practitioner Family; PCP Family Medicine
DX: L03.312 Cellulitis of back [any part except buttock and flank] (principal)
CPT/HCPCS: 99282

== ENCOUNTER 2021-01-31 13:30 | Outpatient (CLI) | payer MEDICAID, SELFPAY ==
--- NOTE | 2021-01-31 13:37 | US_ITS ---
WS: [id number] ADDITIONAL VIEWS LEFT MAMMOGRAM LEFT BREAST ULTRASOUND HISTORY: INCONCLUSIVE MAMMO COMPARISON: 12/01/2020 LEFT MAMMOGRAM: Spot compression views and true ML. The asymmetries increased density immediately resolves in the posterior superior LEFT breast. Very mi nimal increased density persisting on the lateral projections. Ultrasound to follow. LEFT BREAST ULTRASOUND 2-D and color Doppler imaging submitted. Ultrasound is directed to the 10:00 and 2:00 axis of the LEFT breast. There is dense fibroglandular t issue but no mass or torsion. No solid or cystic masses. US/US breast LT limited* [id number] IMPRESSION: BI-RADS: 2-Benign FOLLOW UP: 1 Year Follow-up
== END 2021-01-31 13:31 | disposition home or self-care (01) ==
PROVIDERS: PCP Family Medicine; Visit Provider Internal Medicine
DX: R92.2 Inconclusive mammogram (principal)
CPT/HCPCS: 76642; 77065

== ENCOUNTER 2022-03-08 14:39 | Emergency (ER) | payer MEDICAID, SELFPAY ==
[2022-03-08 15:15] VITALS: BP 134/81; PULSE 90; RESP 13; TEMP 36.7; O2SAT 98; BMI 28.1
--- NOTE | 2022-03-08 16:28 | ED_ITS ---
HPI - Abdominal Pain General: Chief Complaint: Abdominal Pain Stated Complaint: right side abd pain 2xdays Time Seen by Provider: 03/08/22 16:20 Source: patient Mode of arrival: ambulatory History of Present Illness: 41-year-old female presents emergency room for right lower quadrant pain for the last 2 days. She taken [id number] analgesics such as Tylenol ibuprofen with no significant relief no vomiting no hematochezia melena hematemesis coffee-ground emesis no diarrhea. Patient began the right lower quadrant has not significantly very removed since then she has not noticed anything that exacerbates or relieves her symptoms. MD elicited complaint: abdominal pain Onset (ago): day(s) (2) Pain Consistency: intermittent Location: RLQ Severity: mild Quality: cramping Radiation: none Migration to: no migration Exacerbating factors: nothing Relieving factors: nothing Associated Symptoms: Reports nausea; Denies anorexia, belching, bloating, change in bowel habits, change in stool character, chills, coffee ground emesis, constipation, GI cramping, diarrhea, dyspepsia, dysuria, excessive flatus, fever(s), heartburn, hematochezia, hematuria, hematemesis, fecal incontinence, loose stools, melena, poor appetite, syncope and vomiting Related Data: Date of Last Menstrual Period: 11/14/20 Review of Systems Const: Denies: fever(s), chills, fatigue or malaise ENMT: Denies: throat pain, ear or mastoid pain, nasal discharge or nasal congestion Card: Denies: chest pain, palpitations, irregular heart rhythm, edema or syncope Resp: Denies: dyspnea, productive cough or non-productive cough GI: Reports: abdominal pain and nausea; Denies: vomiting, hematemesis, coffee ground emesis, heartburn, diarrhea, constipation, bloating, GI cramping, belching, excessive flatus, fecal incontinence, change in bowel habits, change in stool character, hematochezia or melena : Denies: dysuria, urinary frequency, urinary urgency or hematuria Skin/Breast: Denies: rash or pruritus PFSH ED PFSH: Medical History Acute arthritis Anemia Scoliosis Surgical History H/O excision of mass (11/22/20) Right shoulder History of section x 2, 1998, 2019 History of laparoscopy (~2004) With cyst removal from right ovary and take down of adhesions [place] teeth extracted Family History Grandmother Diabetes maternal and paternal Hypertension maternal and paternal Stroke maternal Heart disease maternal Family/Other Diabetes Maternal aunt Hyperlipidemia Maternal and paternal aunt and uncle Breast cancer Maternal aunt, diagnosed in her 60s Uterine cancer Maternal cousin, diagnosed at age 24 Mother Hyperlipidemia Hypertension Stroke Heart disease Father Hypertension Stroke Heart disease Sister Thyroid condition Denies family history of Colon cancer Ovarian cancer Anesthesia complication Social History Alcohol intake: current Alcohol intake frequency: holidays/special occasions only 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 [employer] Female Reproductive History: Date of last menstrual period: 11/14/20 Physical Exam Const: GENERAL APPEARANCE: cooperative and comfortable ORIENTATION/CONSCIOUSNESS: Yes awake, Yes oriented to person, Yes oriented to place and Yes oriented to time HENMT: COMMON NORMALS: normocephalic, atraumatic and hearing grossly normal bilaterally HEAD & SCALP: normocephalic and atraumatic Resp: COMMON NORMALS: normal respiratory effort, No retractions, No use of accessory muscles and clear to auscultation bilaterally AUSCULTATION: clear to auscultation bilaterally Cardio: COMMON NORMALS: regular rate, regular rhythm and No murmurs present (Cardio) RATE: regular rate RHYTHM: regular rhythm GI: COMMON NORMALS: Soft to palpation and No hepatosplenomegaly present AUSCULTATION: Yes normoactive bowel sounds PALPATION: Yes Soft to palpation, No Tenderness to palpation present (GI), No Guarding due to palpation present (GI) and Yes No hepatosplenomegaly present Extremity: COMMON NORMALS: normal to inspection, capillary refill normal, no clubbing, cyanosis or edema, no calf tenderness and no pedal edema Neuro: SENSORIUM/ORIENTATION: Yes oriented to person, Yes oriented to place and Yes oriented to time Skin: COMMON NORMALS: no rashes or lesions noted GENERAL SKIN EXAM: no rashes or lesions noted Course Vital Signs: Vital signs: Vital Signs Temperature 98.1 F 03/08/22 18:15 Pulse Rate 90 03/08/22 18:15 Respiratory Rate 13 03/08/22 18:15 Blood Pressure 134/81 03/08/22 18:15 Pulse Oximetry 98 03/08/22 18:15 Oxygen Delivery Me thod 03/08/22 17:08 MDM - Abdominal Pain Medical Decision Making CT reviewed no acute injury or abdominal pathology. There is a question of left lower lobe tree-in-bud type findings however patient has no respiratory symptoms at this time. Patient does have a mild cystitis we will discharge her home on Cipro 250 twice daily for 10 days. Advised patient if she develops any respiratory symptoms or UTI symptoms not resolve return to follow-up with her primary care. Medical Records I reviewed the patient's medical records. Lab Data I reviewed the patient's lab results. 03/08/22 17:00 03/08/22 17:00 Labs/Radiology: Radiology Impressions Abdomen/Pelvis CT 03/08/22 16:34 IMPRESSION: 1. Negative for focal acute inflammatory process in the abdomen or pelvis. 2. Left lower lobe tree-in-bud type reticulonodular densities incompletely imaged, perhaps reflecting an atypical mycobacterial infection, dedicated chest CT could further evaluate these, perhaps nonemergently. 3. Gallbladder sludge. 4. Small amount of nonspecific fluid in the pelvis. Laboratory Results WBC 8.9 10^3/uL (4.0-10.0) 03/08/22 17:00 RBC 4.35 10^6/uL (4.1-5.3) 03/08/22 17:00 Hgb 12.9 g/dL (11.5-15.3) 03/08/22 17:00 Hct 39.1 % (37.0-47.0) 03/08/22 17:00 MCV 89.9 fl (81-99) 03/08/22 17:00 MCH 29.7 pg (28.0-34.0) 03/08/22 17:00 MCHC 33.0 g/dL (30.0-36.0) 03/08/22 17:00 RDW 13.2 % (12.1-15.1) 03/08/22 17:00 Plt Count 307 10^3/cmm (130-400) 03/08/22 17:00 MPV 9.3 fL (7.4-10.4) 03/08/22 17:00 Neut % (Auto) 63.6 % 03/08/22 17:00 Lymph % (Auto) 28.0 % 03/08/22 17:00 [place] % (Auto) 7.3 % 03/08/22 17:00 Eos % (Auto) 0.8 % 03/08/22 17:00 Baso % (Auto) 0.1 % 03/08/22 17:00 Neut # (Auto) 5.68 10^3/uL (1.8-7.7) 03/08/22 17:00 Lymph # (Auto) 2.5 10^3/uL (0.8-4.8) 03/08/22 17:00 [place] # (Auto) 0.7 10^3/uL (0.2-0.9) 03/08/22 17:00 Eos # (Auto) 0.1 10^3/uL (0.0-0.8) 03/08/22 17:00 Baso # (Auto) 0.0 10^3/uL (0.0-0.1) 03/08/22 17:00 Nucleated RBC % (auto) 0 % 03/08/22 17:00 Nucleated RBCs # 0.0 /100WBC 03/08/22 17:00 Sodium 136 mmol/L (136-145) 03/08/22 17:00 Potassium 3.9 mmol/L (3.5-5.1) 03/08/22 17:00 Chloride 101 mmol/L (98-107) 03/08/22 17:00 Carbon Dioxide 23 mmol/L (22-29) 03/08/22 17:00 Anion Gap 15.9 (5-19) 03/08/22 17:00 BUN 5 mg/dL (6-20) L 03/08/22 17:00 Creatinine 0.8 mg/dL (0.5-0.9) 03/08/22 17:00 GFR Calculation 79.0 mL/min (90-130) L 03/08/22 17:00 Glucose 71 mg/dL (65-115) 03/08/22 17:00 Calculated Osmolality 278 mOsm/kg (285-295) L 03/08/22 17:00 Calcium 8.9 mg/dL (8.5-10.5) 03/08/22 17:00 Magnesium 2.1 mg/dL (1.7-2.3) 03/08/22 17:00 Total Bilirubin 0.2 mg/dL (0.15-1.2) 03/08/22 17:00 AST 24 U/L (0-32) 03/08/22 17:00 ALT 27 U/L (0-33) 03/08/22 17:00 Alkaline Phosphatase 120 U/L (35-105) H 03/08/22 17:00 Total Protein 7.6 g/dL (6.6-8.7) 03/08/22 17:00 Albumin 3.7 g/dL (3.5-5.2) 03/08/22 17:00 Globulin 3.9 g/dL (1.3-4.6) 03/08/22 17:00 Lipase 29 U/L (13-60) 03/08/22 17:00 HCG, Qual Negative (Negative) 03/08/22 17:00 Urine Color Yellow (Yellow) 03/08/22 16:45 Urine Appearance Hazy (CLEAR) A 03/08/22 16:45 Urine pH 6 (5-7) 03/08/22 16:45 Ur Specific [place] 1.005 (1.005-1.030) 03/08/22 16:45 Urine Protein Neg (Negative) 03/08/22 16:45 Urine Glucose (UA) Norm (Normal) 03/08/22 16:45 Urine Ketones Negative (Negative) 03/08/22 16:45 Urine Blood 2+ (Negative) H 03/08/22 16:45 Urine Nitrate Negative (Negative) 03/08/22 16:45 Urine Bilirubin Neg (Negative) 03/08/22 16:45 Urine Urobilinogen Norm mg/dL (Negative) 03/08/22 16:45 Ur Leukocyte Esterase 2+ (Negative) H 03/08/22 16:45 Urine RBC 0-4 /hpf (0-2) H 03/08/22 16:45 Urine WBC 25-40 /hpf (0-5) H 03/08/22 16:45 Ur Squamous Epith Cells 15-25 /hpf (0-5) H 03/08/22 16:45 Amorphous Sediment Not Reportable 03/08/22 16:45 Urine Bacteria 1+ /hpf (NONE) H 03/08/22 16:45 Discharge Plan Discharge Patient Disposition: Home Clinical Impression: Cystitis Condition: Stable Prescriptions: New Cipro 250 mg tablet 250 mg PO BID Qty: 14 0RF No Action Midol Max St Menstrual 500-60-15 mg tablet 2 tab PO Q6H PRN (Reason: Pain) ferrous sulfate [iron] 325 mg (65 mg iron) Tablet 325 mg PO .2 TIMES WEEKLY ibuprofen 800 mg tablet 800 mg PO Q8H PRN (Reason: pain) Qty: 30 0RF ondansetron HCl [Zofran] 4 mg tablet 4 mg PO Q6H PRN (Reason: nausea and vomiting) Qty: 20 0RF Discharge Orders: Discharge ED (Routine); Ordered 03/08/22 Ordered By: Wyatt Mcwilliams Referrals: Carmen Mondragon MD [Primary Care Provider] - Discharge Diet: Usual diet Discharge Activity: Resume usual activity Patient Instructions: Opioid Safety, Pain Management Activity Restrictions/Additional Instructions: You are seen today for abdominal pain. THe abd pain was likely due to mild cystitis and some constipation noted on the CT. your white count was normal. We will discharge you home on Cipro 250 mg 1 p.o. twice daily for 7 days. Increase your fluid intake. Follow-up with primary care if not improving. Coding Level of Care Code ED Mixing Machine Tender Cork Gasket for Chg Fwd Exam Detailed
--- NOTE | 2022-03-08 16:34 | CTR_ITS ---
PROCEDURE INFORMATION: Exam: CT Abdomen And Pelvis Without Contrast Exam date and time: 03/08/2022 5:50 PM Age: 41 years old Clinical indication: Abdominal pain; Generalized; Prior surgery; Surgery date: 6+ months; Surgery type: 2 csection TECHNIQUE: Imaging protocol: Computed tomography of the abdomen and pelvis without contrast. Radiation optimization: All CT scans at this facility use at least one of these dose optimization techniques: automated exposure control; mA and/or kV adjustment per patient size (includes targeted exams where dose is matched to clinical indication); or iterative reconstruction. COMPARISON: US pelvis lmt w transvag 05/11/2019 6:22 PM RADIATION DOSE METRICS: Total DLP (mGy-cm): 683.08 FINDINGS: Lungs: Left lower lobe tree-in-bud type reticulonodular densities incompletely imaged, perhaps reflecting an atypical mycobacterial infection, dedicated chest CT could further evaluate these, perhaps nonemergently. Liver: Normal. No mass. Gallbladder and bile ducts: Gallbladder sludge. Pancreas: Normal. No ductal dilation. Spleen: Normal. No splenomegaly. Adrenal glands: Normal. No mass. Kidneys and ureters: Normal. No hydronephrosis. Stomach and bowel: Unremarkable. No obstruction. No mucosal thickening. Appendix: No evidence of appendicitis. Intraperitoneal space: Unremarkable. No free air. No significant fluid collection. Vasculature: Unremarkable. No abdominal aortic aneurysm. Lymph nodes: Unremarkable. No enlarged lymph nodes. Urinary bladder: Unremarkable as visualized. Reproductive: Unremarkable as visualized. Bones/joints: Unremarkable. No acute fracture. Soft tissues: Unremarkable. Other findings: Small amount of nonspecific fluid in the pelvis. CT/CT abdomen pelvis wo con [id number] IMPRESSION: 1. Negative for focal acute inflammatory process in the abdomen or pelvis. 2. Left lower lobe tree-in-bud type reticulonodular densities incompletely imaged, perhaps reflecting an atypical mycobacterial infection, dedicated chest CT could further evaluate these, perhaps nonemergently. 3. Gallbladder sludge. 4. Small amount of nonspecific fluid in the pelvis.
[2022-03-08 17:08] VITALS: BP 134/81; PULSE 90; RESP 13; TEMP 36.7; O2SAT 98
[2022-03-08 17:11] LABS: Basophils % 0.1 %; Eosinophils # 0.1 10^3/uL (0.0-0.8); Eosinophils % 0.8 %; Hematocrit 39.1 % (37.0-47.0); Hemoglobin 12.9 g/dL (11.5-15.3); Lymphocytes # 2.5 10^3/uL (0.8-4.8); Mean Corpuscular Hemoglobin 29.7 pg (28.0-34.0); Mean Corpuscular Volume 89.9 fl (81-99); Mean Platelet Volume 9.3 fL (7.4-10.4); Monocytes # 0.7 10^3/uL (0.2-0.9); Monocytes % 7.3 %; Neutrophils # 5.68 10^3/uL (1.8-7.7); Neutrophils % 63.6 %; Nucleated Red Blood Cells % 0 %; Platelet Count 307 10^3/cmm (130-400); Red Blood Count 4.35 10^6/uL (4.1-5.3); Red Cell Distribution Width 13.2 % (12.1-15.1); White Blood Count 8.9 10^3/uL (4.0-10.0)
[2022-03-08 17:21] LABS: HCG, Serum Qual Negative (Negative)
[2022-03-08 17:28] LABS: Alanine Aminotransferase 27 U/L (0-33); Albumin Level 3.7 g/dL (3.5-5.2); Alkaline Phosphatase 120 U/L (35-105); Blood Urea Nitrogen 5 mg/dL (6-20); Calcium 8.9 mg/dL (8.5-10.5); Carbon Dioxide 23 mmol/L (22-29); Chloride 101 mmol/L (98-107); Globulin 3.9 g/dL (1.3-4.6); Glucose 71 mg/dL (65-115); Lipase 29 U/L (13-60); Magnesium 2.1 mg/dL (1.7-2.3); Osmolality Calculated 278 mOsm/kg (285-295); Sodium 136 mmol/L (136-145); Total Bilirubin 0.2 mg/dL (0.15-1.2); Total Protein 7.6 g/dL (6.6-8.7)
[2022-03-08 17:31] LABS: Anion Gap 15.9 (5-19); Aspartate Amino Transferase 24 U/L (0-32); Potassium 3.9 mmol/L (3.5-5.1)
[2022-03-08 17:41] LABS: Add Urine Microscopic? YES; Bilirubin Urine Neg (Negative); Blood Urine 2+ (Negative); Glucose Urine UA Norm (Normal); Ketones Urine Negative (Negative); Leukocyte Esterase Urine 2+ (Negative); Nitrate Urine Negative (Negative); Protein Urine Neg (Negative); Specific Gravity, Urine 1.005 (1.005-1.030); Urine Appearance Hazy (CLEAR); Urine Color Yellow (Yellow); Urobilinogen Urine Norm (Negative); pH Urine 6 (5-7)
[2022-03-08 17:56] LABS: Add Urine Culture? Yes; Bacteria Urine 1+ /hpf; RBC Urine 0-4 /hpf (0-2); Squamous Epithelial Cell Urine 15-25 /hpf (0-5); WBC Urine 25-40 /hpf (0-5)
[2022-03-08 17:58] LABS: Slide Review Slide Review Perform
[2022-03-08 18:15] VITALS: BP 134/81; PULSE 90; RESP 13; TEMP 36.7; O2SAT 98
== END 2022-03-08 18:15 | disposition home or self-care (01) ==
PROVIDERS: Emergency Provider Family Medicine; PCP Family Medicine
DX: N30.90 Cystitis, unspecified without hematuria (principal)
CPT/HCPCS: 74176; 80053; 81001; 83690; 83735; 84703; 85025; 87077; 87086; 87186; 99284

== ENCOUNTER 2022-03-17 18:44 | Emergency (ER) | payer MEDICAID, SELFPAY ==
[2022-03-17 18:48] VITALS: BP 129/64; PULSE 100; RESP 18; TEMP 36.9; O2SAT 97; BMI 28.1
--- NOTE | 2022-03-17 18:57 | XRR_ITS ---
PROCEDURE INFORMATION: Exam: XR Right Knee Exam date and time: 03/17/2022 7:39 PM Age: 41 years old Clinical indication: Injury or trauma; Fall; Sprain or strain; Patella or knee; Right; Additional info: Fall with knee pain TECHNIQUE: Imaging protocol: Radiologic exam of the Right knee. Views: 3 views. COMPARISON: No relevant prior studies available. FINDINGS: Bones/joints: Small enthesophyte at the superior pole of the patella. No evidence for acute fracture. Soft tissues: Normal. XR/XR knee RT 3V* [id number] IMPRESSION: No acute findings.Non acute findings as described above.
--- NOTE | 2022-03-17 19:45 | W.ED.EXTPRO ---
HPI - Extremity Problem General: Chief complaint: Extremity Injury, Lower Stated complaint: fall, knee pain Time Seen by Provider: 03/17/22 19:40 History of Present Illness: Patient is a 41-year-old female who comes to the ED with right knee pain. Patient states she injured her knee approximately an hour prior to arrival. She tripped over another person and fell down landing on her her right knee. She has not been able to walk since her fall. She has an abrasion to her right knee as well. She rates the pain currently a 10 out of 10. Denies any other injuries. Patient is up-to-date on her tetanus. Associated symptoms: Deny chest pain, fever(s) or rash Review of Systems Const: Denies: fever(s), chills or fatigue Eyes: Denies: change in vision or eye discomfort ENMT: Denies: throat pain, odynophagia, nasal discharge or nasal congestion Card: Denies: chest pain, palpitations, edema, swelling of feet/ankles, dyspnea on exertion or orthopnea Resp: Denies: dyspnea, productive cough or non-productive cough GI: Denies: abdominal pain, nausea, vomiting, diarrhea, constipation or hematochezia : Denies: flank pain, dysuria or hematuria Musc: Reports: extremity pain (Right knee pain) and extremity swelling (Right knee); Denies: neck pain or back pain Skin/Breast: Denies: rash or new lesions Neuro: Denies: headache(s), numbness in extremities or weakness in extremities PFSH ED PFSH: Medical History Acute arthritis Anemia Scoliosis Surgical History H/O excision of mass (11/22/20) Right shoulder History of section x 2, 1998, 2019 History of laparoscopy (~2004) With cyst removal from right ovary and take down of adhesions [place] teeth extracted Family History Grandmother Diabetes maternal and paternal Hypertension maternal and paternal Stroke maternal Heart disease maternal Family/Other Diabetes Maternal aunt Hyperlipidemia Maternal and paternal aunt and uncle Breast cancer Maternal aunt, diagnosed in her 60s Uterine cancer Maternal cousin, diagnosed at age 24 Mother Hyperlipidemia Hypertension Stroke Heart disease Father Hypertension Stroke Heart disease Sister Thyroid condition Denies family history of Colon cancer Ovarian cancer Anesthesia complication Social History Alcohol intake: current Alcohol intake frequency: holidays/special occasions only 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 Reproductive History: Date of last menstrual period: 11/14/20 Physical Exam Const: COMMON NORMALS: no acute distress, patient oriented x3 and alert GENERAL APPEARANCE: cooperative and comfortable HENMT: COMMON NORMALS: normocephalic HEAD & SCALP: normocephalic MOUTH: Normal oral and palatal mucosa present THROAT: posterior oropharynx normal and uvula midline Neck/C-Spine: COMMON NORMALS: supple GENERAL: Yes normal visual inspection Resp: COMMON NORMALS: normal respiratory effort, No retractions, No use of accessory muscles and clear to auscultation bilaterally AUSCULTATION: clear to auscultation bilaterally Cardio: COMMON NORMALS: regular rate, regular rhythm, S1 normal heart sound present, S2 normal heart sound present, No gallops present (Cardio), No clicks present (Cardio), No murmurs present (Cardio) and Peripheral pulses 2+ throughout RATE: regular rate RHYTHM: regular rhythm HEART SOUNDS: S1 normal heart sound present and S2 normal heart sound present PERIPHERAL PULSES: Peripheral pulses 2+ throughout GI: COMMON NORMALS: Normal to inspection, nondistended, normoactive bowel sounds present, Soft to palpation, non-tender and no masses PALPATION: Yes Soft to palpation : COMMON NORMALS: Yes no CVA tenderness BLADDER/KIDNEY EXAM: Yes no CVA tenderness Back/Pelvis: COMMON NORMALS: no CVA tenderness Extremity: COMMON NORMALS: normal to inspection NARRATIVE EXTREMITY EXAM: Right knee?superficial abrasion of knee. No deformity, ecchymosis or swelling noted. Limited range of motion due to pain. Neurovascular tact distally. Neuro: COMMON NORMALS: patient oriented x3 SENSORIUM/ORIENTATION: Yes alert GAIT: Yes Normal gait present Skin: GENERAL SKIN EXAM: dry skin Course Vital Signs: Vital signs: Vital Signs Temperature 98.5 F 03/17/22 18:48 Pulse Rate 100 03/17/22 18:48 Respiratory Rate 18 03/17/22 18:48 Blood Pressure 129/64 03/17/22 18:48 Pulse Oximetry 97 03/17/22 18:48 Oxygen Delivery Me thod 03/17/22 18:48 MDM - Extremity (Nontraumatic) Medical Decision Making Patient is a 41-year-old female comes to the ED with right knee injury. Patient fell down onto her right knee just prior to arrival. Vitals are stable. Exam shows superficial abrasion but no ecchymosis or swelling seen. Limited range of motion due to pain. Neurovascular intact distally. X-ray of right knee showed no acute findings or fractures. Patient was diagnosed with a right knee contusion and was discharged home with crutches. She was sent home with a prescription for ibuprofen 8 or milligrams help with pain. Follow-up with PCP in the next week for reevaluation. Return to ED precautions given. Patient understood and agreed with plan. Lab Data Radiology Impressions Knee X-Ray 03/17/22 18:57 IMPRESSION: No acute findings.Non acute findings as described above. Discharge Plan Discharge Patient Disposition: Home Clinical Impression: Contusion of knee, right Qualifiers: Encounter type: initial encounter Qualified Code(s): S80.01XA - Contusion of right knee, initial encounter Condition: Stable Prescriptions: New ibuprofen 800 mg tablet 800 mg PO Q8H PRN (Reason: pain) Qty: 30 0RF No Action Midol Max St Menstrual 500-60-15 mg tablet 2 tab PO Q6H PRN (Reason: Pain) ferrous sulfate [iron] 325 mg (65 mg iron) Tablet 325 mg PO .2 TIMES WEEKLY ibuprofen 800 mg tablet 800 mg PO Q8H PRN (Reason: pain) Qty: 30 0RF ondansetron HCl [Zofran] 4 mg tablet 4 mg PO Q6H PRN (Reason: nausea and vomiting) Qty: 20 0RF Cipro 250 mg tablet 250 mg PO BID Qty: 14 0RF Discharge Orders: Discharge ED (Routine); Ordered 03/17/22 Ordered By: Cali Saeed Referrals: Carmen Mondragon MD [Primary Care Provider] - Discharge Diet: Regular Discharge Activity: Increase activity as tolerated Patient Instructions: Knee Pain (ED) Activity Restrictions/Additional Instructions: Follow-up with medical provider as directed in the next 5 to 7 days for reevaluation. Use crutches to help with ambulation over the next 2 to 3 days and slowly advance weightbearing as tolerated. Rest, ice and elevate right knee. Take medications as prescribed. Return to the ER or your medical provider if condition worsens. Please read and understand discharge instructions. Thank you for choosing [facility] for your healthcare needs today. Please realize this is an emergency room and that we are providing you with a medical screening exam and this may not be complete and all inclusive of all the testing and or work up that you may need to determine your ailment or severity of your illness. It is very important that you follow up as instructed or that you return to the Emergency Department should you have concerns or if your condition changes or worsens in any way. Stand Alone Forms: Work/School Release Coding Level of Care Code ED Skein Winding Operator for Jake Fwd Exam Comprehensive
[2022-03-17] MEDS: HYDROcodone-acetaminophen 7.5-325 mg Tablet 1 TAB PO (19:58)
[2022-03-17 20:29] VITALS: RESP 16
== END 2022-03-17 20:20 | disposition home or self-care (01) ==
PROVIDERS: Emergency Provider Physician Assistant; PCP Family Medicine
DX: S80.01XA Contusion of right knee, initial encounter (principal); W03.XXXA Other fall on same level due to collision with another person, initial encounter
CPT/HCPCS: 73562; 99283; E0114

== ENCOUNTER 2022-06-01 22:12 | Emergency (ER) | payer MEDICAID, SELFPAY ==
[2022-06-01 22:14] VITALS: BP 135/84; PULSE 94; RESP 22; TEMP 37.2; O2SAT 99; BMI 27.8
--- NOTE | 2022-06-02 00:03 | W.ED.EYEPROB ---
HPI - Eye Problem General: Chief complaint: Eye Problems Stated complaint: nail glue in left eye Time Seen by Provider: 06/01/22 23:43 History of Present Illness: Patient is a 41-year-old female comes to the ED with left eye pain. Patient was applying fake fingernails and using glue. She excellently touched some of the fingernail glue to her left eye. She flushed the eye out for 15 minutes afterwards. She is still having 10 out of 10 left eye pain and redness. Eye pain worsens if she opens her eye. Endorses some blurry vision. Denies any other symptoms. Associated symptoms: Denies fever(s), headache(s), nausea, neck pain or vomiting Review of Systems Const: Denies: fever(s), chills or fatigue Eyes: Reports: blurry vision (Left eye), eye discomfort (Left eye) and eye redness (Left eye); Denies: change in vision ENMT: Denies: throat pain, odynophagia, nasal discharge or nasal congestion Card: Denies: chest pain, palpitations, edema, swelling of feet/ankles, dyspnea on exertion or orthopnea Resp: Denies: dyspnea, productive cough or non-productive cough GI: Denies: abdominal pain, nausea, vomiting, diarrhea, constipation or hematochezia : Denies: flank pain, dysuria or hematuria Musc: Denies: neck pain, back pain or extremity swelling Skin/Breast: Denies: rash or new lesions Neuro: Denies: headache(s), numbness in extremities or weakness in extremities PFS ED PFSH: Medical History Acute arthritis Anemia Scoliosis Surgical History H/O excision of mass (11/22/20) Right shoulder History of section x 2, 1998, 2018 History of laparoscopy (~2004) With cyst removal from right ovary and take down of adhesions [place] teeth extracted Family History Grandmother Diabetes maternal and paternal Hypertension maternal and paternal Stroke maternal Heart disease maternal Family/Other Diabetes Maternal aunt Hyperlipidemia Maternal and paternal aunt and uncle Breast cancer Maternal aunt, diagnosed in her 60s Uterine cancer Maternal cousin, diagnosed at age 24 Mother Hyperlipidemia Hypertension Stroke Heart disease Father Hypertension Stroke Heart disease Sister Thyroid condition Denies family history of Colon cancer Ovarian cancer Anesthesia complication Social History Alcohol intake: current Alcohol intake frequency: holidays/special occasions only 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 Physical Exam Const: COMMON NORMALS: no acute distress, patient oriented x3 and alert GENERAL APPEARANCE: cooperative and comfortable HENMT: COMMON NORMALS: normocephalic HEAD & SCALP: normocephalic MOUTH: Normal oral and palatal mucosa present THROAT: posterior oropharynx normal and uvula midline Eye: COMMON NORMALS: Equal, round and reactive pupils present and EOMs intact bilaterally GENERAL EYE: other (No foreign body seen.) PERIORBITAL: periorbital findings normal EYELID: eyelids normal CONJUNCTIVA: Yes conjunctival abnormal positive left conjunctival injection and discharge purulent PUPIL: Yes Equal, round and reactive pupils present OTHER: Fluorescein dye and lamp exam performed and no focal areas of dye picked up. No indication of any corneal abrasions. Neck/C-Spine: COMMON NORMALS: supple GENERAL: Yes normal visual inspection Resp: COMMON NORMALS: normal respiratory effort, No retractions, No use of accessory muscles and clear to auscultation bilaterally AUSCULTATION: clear to auscultation bilaterally Cardio: COMMON NORMALS: regular rate, regular rhythm, S1 normal heart sound present, S2 normal heart sound present, No gallops present (Cardio), No clicks present (Cardio), No murmurs present (Cardio) and Peripheral pulses 2+ throughout RATE: regular rate RHYTHM: regular rhythm HEART SOUNDS: S1 normal heart sound present and S2 normal heart sound present PERIPHERAL PULSES: Peripheral pulses 2+ throughout GI: COMMON NORMALS: Normal to inspection, nondistended, normoactive bowel sounds present, Soft to palpation, non-tender and no masses PALPATION: Yes Soft to palpation : COMMON NORMALS: Yes no CVA tenderness BLADDER/KIDNEY EXAM: Yes no CVA tenderness Back/Pelvis: COMMON NORMALS: no CVA tenderness Extremity: COMMON NORMALS: normal to inspection Neuro: COMMON NORMALS: patient oriented x3 SENSORIUM/ORIENTATION: Yes alert GAIT: Yes Normal gait present Skin: GENERAL SKIN EXAM: dry skin Course Vital Signs: Vital signs: Vital Signs Temperature 98.9 F 06/01/22 22:14 Pulse Rate 100 06/02/22 01:34 Respiratory Rate 14 06/02/22 01:34 Blood Pressure 111/77 06/02/22 01:34 Pulse Oximetry 100 06/02/22 01:34 MDM - Eye Problem Medical Decision Making Patient is a 41-year-old female comes to the ED with left eye pain. Patient was applying fake fingernails and using glue. She excellently touched some of the fingernail glue to her left eye. She flushed the eye out for 15 minutes afterwards. She is still having 10 out of 10 left eye pain and redness. Eye pain worsens if she opens her eye. Endorses some blurry vision. Denies any other symptoms. Vital stable. Tetracaine drops placed in patient's left eye along with fluorescein dye and lamp exam performed and it showed no uptake of dye. No foreign body seen. Conjunctival injection throughout eye. Periorbital region and eyelids were all normal. Patient was given a dose of Maxitrol eyedrops here in the ED. She was diagnosed with superficial injury of left eye and was discharged home with a prescription for hydrocodone for acute pain and Maxitrol eyedrops. She was told to contact Dr. Downing office on Friday morning for follow-up. Strict return ED precautions given. Patient understood and agreed with plan Discharge Plan Discharge Patient Disposition: Home Clinical Impression: Injury of eye, left, superficial Qualifiers: Encounter type: initial encounter Qualified Code(s): S05.8X2A - Other injuries of left eye and orbit, initial encounter Condition: Stable Prescriptions: New Maxitrol 3.5mg/mL-10,000 unit/mL-0.1 % drops,suspension 1 drp ophthalmic (eye) Q6H 7 Days Qty: 5 0RF No Action Midol Max St Menstrual 500-60-15 mg tablet 2 tab PO Q6H PRN (Reason: Pain) ferrous sulfate [iron] 325 mg (65 mg iron) Tablet 325 mg PO .2 TIMES WEEKLY ibuprofen 800 mg tablet 800 mg PO Q8H PRN (Reason: pain) Qty: 30 0RF ondansetron HCl [Zofran] 4 mg tablet 4 mg PO Q6H PRN (Reason: nausea and vomiting) Qty: 20 0RF ibuprofen 800 mg tablet 800 mg PO Q8H PRN (Reason: pain) Qty: 30 0RF Cipro 250 mg tablet 250 mg PO BID Qty: 14 0RF Discharge Orders: Discharge ED (Routine); Ordered 06/02/22 Ordered By: Cali Saeed Referrals: Carmen Mondragon MD [Primary Care Provider] - Discharge Diet: Regular Discharge Activity: Increase activity as tolerated Patient Instructions: Foreign Body - Eye, Eye Pain (ED) Activity Restrictions/Additional Instructions: Follow-up with medical provider as directed. Call Dr. Downing eye clinic on Friday phone number is [phone]. Address is [facility] [address] Victor Hugo Le. take medications as prescribed. Return to the ER or your medical provider if condition worsens. Please read and understand discharge instructions. If any questions, please ask. Coding Level of Care Code ED Field Associate for Jake Edmonds
[2022-06-02] MEDS: fluorescein 1 mg Strip EYE-LEFT (00:10)
[2022-06-02] MEDS: eye irrigation 30 mL Btl EYE-LEFT (00:10)
[2022-06-02] MEDS: tetracaine 0.5% Op Soln 4 mL Btl 1 DROP EYE-LEFT (00:11)
[2022-06-02] MEDS: neomycin-poly-dex Op 5 mL Btl 2 DROP EYE-LEFT (01:25)
--- NOTE | 2022-06-02 01:33 | PC.NURSE ---
[place] - #1 tab sent with home with patient to take latter per provider.
[2022-06-02 01:34] VITALS: BP 111/77; PULSE 100; RESP 14; O2SAT 100
== END 2022-06-02 01:35 | disposition home or self-care (01) ==
PROVIDERS: Emergency Provider Physician Assistant; PCP Family Medicine
DX: S05.8X2A Other injuries of left eye and orbit, initial encounter (principal); X58.XXXA Exposure to other specified factors, initial encounter
CPT/HCPCS: 99283

== ENCOUNTER 2022-11-26 16:35 | Emergency (ER) | payer MEDICAID, SELFPAY ==
[2022-11-26 16:43] VITALS: BP 150/73; PULSE 75; RESP 17; TEMP 36.6; O2SAT 99; BMI 25.9
--- NOTE | 2022-11-26 17:07 | ED_ITS ---
HPI - Back Pain/Injury General: Chief Complaint: Back Pain/Injury Stated Complaint: hip and right leg pain 2 weeks Time Seen by Provider: 11/26/22 17:04 History of Present Illness: 42-year-old female comes in today with increased back pain x2 weeks. Patient also reports radiation of pain going to the right hip and right mid calf. Patient does have some occasional numbness in the feet. Patient has a history of chronic back pain which she relates to arthritis in the spine and scoliosis. Reviewed imaging films that have been done over the last 2 years there was a noted abdominal CT scan done in March 2022 and was able to see degenerative disc disease as evidenced by loss of disc height throughout the lumbar spine. Patient denies any recent falls or new injuries. Patient has been using acetaminophen and ibuprofen to help with pain. Patient appears nontoxic. Patient appears in moderate pain. Associated symptoms: Deny fever(s) or vomiting Review of Systems General: Reports: 10 or more systems reviewed and unremarkable except in HPI and below Const: Denies: fever(s) Card: Denies: chest pain Resp: Denies: dyspnea GI: Denies: vomiting : Denies: difficulty voiding Musc: Reports: back pain Skin/Breast: Denies: rash Neuro: Reports: numbness in extremities Psych: Denies: depression PFSH ED PFSH: Medical History Acute arthritis Anemia Scoliosis Surgical History H/O excision of mass (11/22/20) Right shoulder History of section x 2, 1998, 2018 History of laparoscopy (~2004) With cyst removal from right ovary and take down of adhesions [place] teeth extracted Family History Grandmother Diabetes maternal and paternal Hypertension maternal and paternal Stroke maternal Heart disease maternal Family/Other Diabetes Maternal aunt Hyperlipidemia Maternal and paternal aunt and uncle Breast cancer Maternal aunt, diagnosed in her 60s Uterine cancer Maternal cousin, diagnosed at age 24 Mother Hyperlipidemia Hypertension Stroke Heart disease Father Hypertension Stroke Heart disease Sister Thyroid condition Denies family history of Colon cancer Ovarian cancer Anesthesia complication Social History Alcohol intake: current Alcohol intake frequency: holidays/special occasions only Substance/Drug Use: never 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 [employer] Female Reproductive History: Date of last menstrual period: 11/11/22 Physical Exam Const: COMMON NORMALS: alert HENMT: COMMON NORMALS: normocephalic HEAD & SCALP: normocephalic Neck/C-Spine: COMMON NORMALS: full ROM Resp: COMMON NORMALS: normal respiratory effort Cardio: COMMON NORMALS: regular rate RATE: regular rate GI: COMMON NORMALS: Soft to palpation PALPATION: Yes Soft to palpation Back/Pelvis: LUMBAR SPINE/LOWER BACK: Yes paraspinal muscle tenderness Lumbar paraspinal muscle tenderness: right Extremity: COMMON NORMALS: no pedal edema Neuro: SENSORIUM/ORIENTATION: Yes alert Skin: COMMON NORMALS: turgor normal GENERAL SKIN EXAM: turgor normal Course Vital Signs: Vital signs: Vital Signs Temperature 97.8 F 11/26/22 16:43 Pulse Rate 75 11/26/22 16:43 Respiratory Rate 17 11/26/22 16:43 Blood Pressure 150/73 11/26/22 16:43 Pulse Oximetry 99 11/26/22 16:43 Oxygen Delivery Me thod Room Air 11/26/22 16:43 MDM - Back Pain/Injury Medical Decision Making 42-year-old female comes in today with complaints of low back pain radiating down the right leg. Patient denied any loss of bowel or bladder control. Patient does report some numbness in the right lower extremity including foot. No edema is noted in the extremity. Patient has normal range of motion of the extremity. Patient has muscle tenderness on the right lower lumbar spine. Differential diagnosis includes but not limited to intervertebral disc disease, lumbar radiculopathy, facet arthropathy, lumbar strain. Reviewed old images from March [address] scan and noticed multiple areas of disc space loss on the CT of the abdomen pelvis. Patient had no recent falls or injuries so no further imaging was done today. Believe this is a aggravation of her chronic issue with lumbar radiculopathy. Patient was agreeable to give steroids and muscle relaxers along with continuation of Tylenol and ibuprofen to help with the pain. Patient was also given a few hydrocodone for severe pain. Patient will be referred to orthopedic spine for further evaluation and treatment due to the worsening of her pain and numbness in the foot. Patient was able to ambulate and was stable and discharged home. Discharge Plan Discharge Patient Disposition: Home Clinical Impression: Lumbar radiculopathy, Degeneration, intervertebral disc, lumbar Condition: Stable Prescriptions: New prednisone 20 mg tablet 20 mg PO DAILY Qty: 10 0RF baclofen 10 mg tablet 10 mg PO Q8H PRN (Reason: muscle spasm) Qty: 30 0RF hydrocodone-acetaminophen 5-325 mg tablet 1 tab PO Q6H PRN (Reason: pain (scale score 7-10)) Qty: 10 0RF No Action Midol Max St Menstrual 500-60-15 mg tablet 2 tab PO Q6H PRN (Reason: Pain) ferrous sulfate [iron] 325 mg (65 mg iron) Tablet 325 mg PO .2 TIMES WEEKLY ibuprofen 800 mg tablet 800 mg PO Q8H PRN (Reason: pain) Qty: 30 0RF ondansetron HCl [Zofran] 4 mg tablet 4 mg PO Q6H PRN (Reason: nausea and vomiting) Qty: 20 0RF ibuprofen 800 mg tablet 800 mg PO Q8H PRN (Reason: pain) Qty: 30 0RF Cipro 250 mg tablet 250 mg PO BID Qty: 14 0RF Discharge Orders: Discharge ED (Routine); Ordered 11/26/22 Ordered By: Marcos Mcmillan Referrals: Carmen Mondragon MD [Primary Care Provider] - Discharge Diet: Usual diet Discharge Activity: Increase activity as tolerated Patient Instructions: Back Pain (ED), Opioid Safety Activity Restrictions/Additional Instructions: Try to maintain normal activity is much as possible. Continue with present plan of Tylenol and ibuprofen to control pain. Use gentle stretching exercises to help with staying limber and maintaining activity. Avoid heavy lifting or strenuous work until pain resolves. Use ice or heat for further pain relief. Use hydrocodone for severe pain. Use baclofen for muscle spasms. Take prednisone 20 mg daily for the next 10 days for inflammation. Follow-up with primary care as needed. Case management will contact you regarding follow-up appointment with orthopedic spine office for further evaluation and treatment. Coding Level of Care Code ED Detasseler for Jake Edmonds
[2022-11-26 17:38] VITALS: PULSE 80; RESP 14; O2SAT 98
[2022-11-26] MEDS: ketorolac 60 mg/2 mL INJ 30 MG IM (17:42)
[2022-11-26] MEDS: dexamethasone 10 mg/mL INJ IM (17:43)
[2022-11-26 17:45] VITALS: BP 106/63; PULSE 79; O2SAT 99
--- NOTE | 2022-11-28 09:35 | DCPLANNER ---
Addendum entered by Cristine Baez 12/04/22 12:47: channel manager received the following message from the ortho clinic regarding follow up appointment: Attempted to contact patient - I was unable to get ahold of her, but I left a v/m asking her to call us back so we can get her scheduled with Dr. Valverde or his PA Carlos and I will also be mailing her a letter! Original Note: channel manager had message to schedule a follow up appointment for patient with ortho. channel manager sent patients information to the front office staff at ortho. Patients information will be printed and reviewed. Clinic will call patient with appointment information.
== END 2022-11-26 17:46 | disposition home or self-care (01) ==
PROVIDERS: Emergency Provider Nurse Practitioner Family; PCP Family Medicine
DX: M54.16 Radiculopathy, lumbar region (principal); M51.36 Other intervertebral disc degeneration, lumbar region
CPT/HCPCS: 96372; 99284; J1100; J1885

== ENCOUNTER 2024-07-20 22:12 | Emergency (ER) | payer MEDICAID, SELFPAY ==
[2024-07-20 22:16] VITALS: BP 157/99; PULSE 87; RESP 18; TEMP 36.9; O2SAT 99
--- NOTE | 2024-07-20 22:19 | ECG_ITS ---
[facility]: 2024-[facility]20 Pat Name: Nida Lan Department: Room: Gender: Female Sample Wrapper: : 1980 Requested By: Santos Summers Order Number: [id number] Yonathan MD: Higinio Holden M.D. Measurements Intervals [place] Rate: 85 P: 66 NH: 130 QRS: 76 QRSD: 70 T: 54 QT: 353 QTc: 421 Interpretive Statements SINUS RHYTHM WITH SINUS ARRHYTHMIA No previous ECG available for comparison Electronically Signed On 07-21-2024 21:27:20 CDT by Higinio Holden M.D. [email or web address]
[2024-07-20 22:23] VITALS: BP 141/75; PULSE 81; O2SAT 99
[2024-07-20 22:53] VITALS: BP 141/75; PULSE 77; O2SAT 98
--- NOTE | 2024-07-20 22:58 | XRR_ITS ---
PROCEDURE INFORMATION: Exam: XR Chest Exam date and time: 07/20/2024 11:10 PM Age: 43 years old Clinical indication: Pain; Radiating; Additional info: Epigastric pain TECHNIQUE: Imaging protocol: Radiologic exam of the chest. Views: 1 view. COMPARISON: CT abdomen pelvis con [id number] 03/08/2022 5:50 PM FINDINGS: Lungs: Unremarkable. No consolidation. Pleural spaces: Unremarkable. No pleural effusion. No pneumothorax. Heart/Mediastinum: Unremarkable. No cardiomegaly. Bones/joints: Unremarkable. XR/XR chest 1V portable [id number] IMPRESSION: No acute findings.
--- NOTE | 2024-07-20 23:08 | ED_ITS ---
Documented by User: FLORENCE Mix 07/21/24 13:08 HPI - Abdominal Pain 2 General: Chief Complaint: Abdominal Pain Stated Complaint: Chest Pains Burning\V Time Seen by Provider: 07/20/24 22:24 Source: patient Mode of arrival: ambulatory Limitations: no limitations History of Present Illness: Patient is a 43-year-old female presents the emergency department planing of epigastric pain for 4 days. Reports a history of GERD, states this feels similar just has not gone away with [id number]-[id number] therapies. States she has taken Tums and tried numerous other remedies that have not helped. Pain reported to radiate directly into her back, noting associated nausea and vomiting. No shortness of breath, chest pain, dysuria or hematuria, bowel changes, or other symptoms at this time. Vitals unremarkable. Denies any cardiac history. Reports the pain is burning, it is worse specifically after eating as well as lying supine. No reported relieving factors. No temporal pattern noted. MD elicited complaint: abdominal pain Pertinent past history: gastritis Onset (ago): day(s) (4) Pain Consistency: constant Location: Epigastric Severity: moderate Quality: burning Radiation: back Exacerbating factors: eating and other (supine) Context: history of similar episodes Associated Symptoms: Reports nausea and vomiting; Denies bloating, change in stool character, chills, constipation, diarrhea, dysuria, fever(s) and hematochezia Treatments prior to arrival: antacids Related Data Previous Rx's ?Medication ?Instructions ?Recorded albuterol sulfate 90 mcg/actuation 2 puff inhalation Q 6H PRN 03/30/24 aerosol inhaler shortness of breath or wheez ing #8.5 grams albuterol sulfate 8 mg 8 mg PO Q12H #20 tabs tablet,extended release,12 hr amoxicillin 875 mg-potassium 1 tab PO BID 10 days #20 tabs 07/21/24 clavulanate 125 mg tablet ondansetron 4 mg disintegrating 4 mg PO TID PRN nausea and 07/21/24 tablet vomiting #30 tabs pantoprazole 40 mg tablet,delayed 40 mg PO DAILY #30 t abs 07/21/24 release (Protonix) Allergies Allergy/AdvReac Type Severity Reaction Status Date / Time No Known Allergies Allergy Verified 07/20/24 22:23 Review of Systems 2 General: Reports: 10 or more systems reviewed and unremarkable except in HPI and below Const: Reports: change in appetite; Denies: fever(s), chills, change in weight or diaphoresis ENMT: Denies: throat pain or hoarseness Card: Denies: chest pain, palpitations or lightheadedness Resp: Denies: dyspnea, productive cough or wheezing GI: Reports: abdominal pain, nausea and vomiting; Denies: diarrhea, constipation, bloating, change in stool character or hematochezia : Denies: flank pain, difficulty voiding, dysuria, urinary frequency or urinary urgency Musc: Reports: back pain; Denies: neck pain Skin/Breast: Denies: rash or new lesions Neuro: Denies: headache(s) or dizziness PFSH ED 2 PFSH: Medical History Anemia Acute arthritis Scoliosis Surgical History H/O excision of mass (11/22/20) Right shoulder [place] teeth extracted History of section x 2, 1998, 2019 History of laparoscopy (~2004) With cyst removal from right ovary and take down of adhesions Family History Grandmother Diabetes maternal and paternal Hypertension maternal and paternal Stroke maternal Heart disease maternal Family/Other Diabetes Maternal aunt Hyperlipidemia Maternal and paternal aunt and uncle Breast cancer Maternal aunt, diagnosed in her 60s Uterine cancer Maternal cousin, diagnosed at age 24 Mother Hyperlipidemia Hypertension Stroke Heart disease Father Hypertension Stroke Heart disease Sister Thyroid disease Denies family history of Colon cancer Ovarian cancer Anesthesia complication Social History Smoking and tobacco/nicotine status: heavy tobacco/nicotine user cigarettes Packs smoked per day: 1 [ Other cigarette details: Started smoking age 9 and smokes up to 1 pack daily] Alcohol intake: current Alcohol intake frequency: holidays/special occasions only Substance/Drug Use: never 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 [employer] Physical Exam 2 Const: COMMON NORMALS: patient oriented x3, no limitations, alert and well nourished GENERAL APPEARANCE: cooperative ORIENTATION/CONSCIOUSNESS: Yes awake HENMT: COMMON NORMALS: normocephalic, atraumatic, hearing grossly normal bilaterally, external ears normal, Normal external nose present, Normal nasal mucous membranes and turbinates present and moist oral mucous membranes HEAD & SCALP: normocephalic and atraumatic NOSE: Normal external nose present and Normal nasal mucous membranes and turbinates present EXTERNAL EAR: Yes external ears normal Eye: COMMON NORMALS: Equal, round and reactive pupils present, EOMs intact bilaterally, conjunctivae normal and normal visual guzman by confrontation C ONJUNCTIVA: Yes conjunctivae normal PUPIL: Yes Equal, round and reactive pupils present Neck/C-Spine: COMMON NORMALS: full ROM, supple, no meningeal signs and no JVD Resp: COMMON NORMALS: normal respiratory effort, No retractions, No use of accessory muscles and clear to auscultation bilaterally AUSCULTATION: clear to auscultation bilaterally, no crackles, no rales, no rhonchi and no wheezes Cardio: COMMON NORMALS: no JVD, regular rate, regular rhythm, S1 normal heart sound present, S2 normal heart sound present, No gallops present (Cardio), No clicks present (Cardio), No murmurs present (Cardio), No rub (Cardio) and Peripheral pulses 2+ throughout RATE: regular rate RHYTHM: regular rhythm HEART SOUNDS: S1 normal heart sound present and S2 normal heart sound present PERIPHERAL PULSES: Peripheral pulses 2+ throughout GI: COMMON NORMALS: Normal to inspection, nondistended, normoactive bowel sounds present, Soft to palpation, No hepatosplenomegaly present and no masses AUSCULTATION: Yes normoactive bowel sounds PALPATION: Yes Soft to palpation, Yes Tenderness to palpation present (GI) (epigastric), No Guarding due to palpation present (GI), No Rigid due to palpation and Yes No hepatosplenomegaly present RECTAL EXAM: deferred : COMMON NORMALS: Yes no CVA tenderness BLADDER/KIDNEY EXAM: Yes no CVA tenderness Back/Pelvis: COMMON NORMALS: no CVA tenderness Extremity: COMMON NORMALS: normal to inspection and full ROM Neuro: COMMON NORMALS: patient oriented x3, moves all extremities, no focal motor deficits and no sensory deficits noted SENSORIUM/ORIENTATION: Yes alert MENINGEAL SIGNS: Yes no meningeal signs Psych: COMMON NORMALS: mental status grossly normal, cooperative and speech normal SPEECH: Yes normal speech Skin: COMMON NORMALS: no rashes or lesions noted GENERAL SKIN EXAM: no rashes or lesions noted Course 2 Vital Signs: Vital signs: Vital Signs Temperature 98.4 F 07/20/24 22:16 Pulse Rate 58 L 07/21/24 06:30 Respiratory Rate 18 07/20/24 22:16 Blood Pressure 107/69 07/21/24 06:30 Pulse Oximetry 94 07/21/24 06:30 Oxygen Delivery Me thod Room Air 07/20/24 22:23 MDM - Abdominal Pain Medical Decision Making This patient presented for epigastric pain for the past 4 days, notable history is of GERD. Directly reported to me that her pain was brought on and worsened by eating, and lying supine. Has tried hzhc-ltv-kksnsli remedies such as Tums, has not gotten any relief. On exam there is reproducible tenderness to palpation to the epigastrium. Vitals have been stable, notably afebrile. Denies any cardiac history. Here EKG was obtained and reviewed with physician showing no acute STEMI or other abnormalities. Her chest x-ray is unremarkable and her troponin was negative. CBC normal, no elevation in her white count. Urine was cleared of any infection. On her metabolic panel, there was an increase in her LFTs, minimal increase in bilirubin. She also did not report much relief from GI cocktail that I gave her. Ultrasound was obtained of the right upper quadrant, currently pending radiology review at this time and patient's care transferred over to Dr. Downing. Patient was also given morphine for breakthrough pain and Zofran for nausea, as well as started on a liter of fluids. Of note her lipase was negative and she did not report to me any recent alcohol use, stating it had been years since her last drink. Lab Data 07/20/24 23:08 07/20/24 23:08 Labs/Radiology: Radiology Impressions Chest X-Ray 07/20/24 22:58 IMPRESSION: No acute findings. Gallbladder Ultrasound 07/21/24 23:49 IMPRESSION: 1. Cholelithiasis, gallbladder wall is mildly thickened to 6 mm, findings are concerning for developing cholecystitis, nuclear medicine HIDA scan could further evaluate this if clinically indicated. 2. Common bile duct mildly dilated without obstructing lesion seen, MRCP could further characterize this. 3. Hepatic steatosis. Laboratory Results WBC 5.92 10^3/uL (3.29-11.43) 07/20/24 23:08 RBC 4.13 10^6/uL (3.85-5.65) 07/20/24 23:08 Hgb 11.40 g/dL (11.27-16.99) 07/20/24 23:08 Hct 36.5 % (36-47) 07/20/24 23:08 MCV 88.4 fl (85-98) 07/20/24 23:08 MCH 27.6 pg (27-33) 07/20/24 23:08 MCHC 31.2 g/dL (30-55) 07/20/24 23:08 RDW 15.1 % (12.1-15.1) 07/20/24 23:08 Plt Count 296 10^3/cmm (157-399) 07/20/24 23:08 MPV 9.5 fL (7.4-10.4) 07/20/24 23:08 Neut % (Auto) 66.9 % 07/20/24 23:08 Lymph % (Auto) 22.6 % 07/20/24 23:08 [place] % (Auto) 9.0 % 07/20/24 23:08 Eos % (Auto) 1.0 % 07/20/24 23:08 Baso % (Auto) 0.2 % 07/20/24 23:08 Neut # (Auto) 3.96 10^3/uL (1.8-7.7) 07/20/24 23:08 Lymph # (Auto) 1.3 10^3/uL (0.8-4.8) 07/20/24 23:08 [place] # (Auto) 0.5 10^3/uL (0.2-0.9) 07/20/24 23:08 Eos # (Auto) 0.1 10^3/uL (0.0-0.8) 07/20/24 23:08 Baso # (Auto) 0.0 10^3/uL (0.0-0.1) 07/20/24 23:08 Nucleated RBC % (auto) 0 % 07/20/24 23:08 Nucleated RBCs # 0.0 /100WBC 07/20/24 23:08 Sodium 138 mmol/L (136-145) 07/20/24 23:08 Potassium 4.4 mmol/L (3.5-5.1) 07/20/24 23:08 Chloride 102 mmol/L (98-107) 07/20/24 23:08 Carbon Dioxide 24 mmol/L (22-29) 07/20/24 23:08 Anion Gap 16.4 (5-19) 07/20/24 23:08 BUN 9 mg/dL (6-20) 07/20/24 23:08 Creatinine 1.0 mg/dL (0.5-0.9) H 07/20/24 23:08 GFR Calculation 60.5 mL/min (90-130) L 07/20/24 23:08 Glucose 86 mg/dL (65-115) 07/20/24 23:08 Calculated Osmolality 284 mOsm/kg (285-295) L 07/20/24 23:08 Calcium 8.6 mg/dL (8.5-10.5) 07/20/24 23:08 Total Bilirubin 2.0 mg/dL (0.15-1.2) H 07/20/24 23:08 AST 508 U/L (0-32) H 07/20/24 23:08 ALT 482 U/L (0-33) H 07/20/24 23:08 Alkaline Phosphatase 253 U/L (35-105) H 07/20/24 23:08 Troponin T Baseline < 6 ng/L (0-10) 07/20/24 23:08 Troponin T 120 Minute 6.00 ng/L (0-10) 07/21/24 01:09 Delta Troponin T 0.47624 ABS# (0-10) 07/21/24 01:09 Total Protein 7.3 g/dL (6.6-8.7) 07/20/24 23:08 Albumin 4.3 g/dL (3.5-5.2) 07/20/24 23:08 Globulin 3.0 g/dL (1.3-4.6) 07/20/24 23:08 Lipase 45 U/L (13-60) 07/20/24 23:08 HCG, Qual Negative (Negative) 07/20/24 23:08 Urine Color Dark yellow (Yellow) A 07/20/24 23:08 Urine Appearance Clear (CLEAR) 07/20/24 23:08 Urine pH 6.5 (5-7) 07/20/24 23:08 Ur Specific [place] 1.012 (1.005-1.030) 07/20/24 23:08 Urine Protein Negative (Negative) 07/20/24 23:08 Urine Glucose (UA) Negative (Normal) 07/20/24 23:08 Urine Ketones Negative (Negative) 07/20/24 23:08 Urine Blood Negative (Negative) 07/20/24 23:08 Urine Nitrate Negative (Negative) 07/20/24 23:08 Urine Bilirubin 1+ (Negative) H 07/20/24 23:08 Urine Urobilinogen 1.0 mg/dL (Negative) 07/20/24 23:08 Ur Leukocyte Esterase Negative (Negative) 07/20/24 23:08 Urine RBC 0-2 /hpf (0-2) 07/20/24 23:08 Urine WBC 0-5 /hpf (0-5) 07/20/24 23:08 Ur Squamous Epith Cells 0-5 /hpf (0-5) 07/20/24 23:08 Amorphous Sediment Not Reportable 07/20/24 23:08 Urine Bacteria None seen /hpf (NONE) 07/20/24 23:08 Hyaline Casts 0-4 /lpf H 07/20/24 23:08 Hepatitis A IgM Ab Non-reactive (Nonreactive) 07/20/24 23:08 Hep Bs Antigen Non-reactive (Nonreactive) 07/20/24 23:08 Hep B Core IgM Ab Non-reactive (Nonreactive) 07/20/24 23:08 Hepatitis C Antibody Non-reactive (Nonreactive) 07/20/24 23:08 All radiology interpretation(s) finalized by discharge Discharge Plan Discharge Patient Disposition: Xfer Short-Term Hosp Clinical Impression: Acute cholecystitis, Transaminitis GERD (gastroesophageal reflux disease) Qualifiers: Esophagitis presence: with esophagitis Esophagitis bleeding: without hemorrhage Qualified Code(s): K21.00 - Gastro-esophageal reflux disease with esophagitis, without bleeding Condition: Stable Discharge Orders: Transfer Out of Facility (Order); Ordered 07/21/24 Ordered By: Santos Downing Referrals: Carmen Mondragon MD [Primary Care Provider] - Patient Instructions: GERD (Gastroesophageal Reflux Disease) (ED), Transaminitis (ED) Activity Restrictions/Additional Instructions: Follow-up with general surgery. Follow-up with your regular doctor. Please take the antibiotics as prescribed. Take Protonix as prescribed. Zofran for nausea. Low-fat diet. Please see the attached patient instructions for further education. Avoid lying flat at least 2 hours after eating. Avoid any food or drink that may potentiate your pain. Please return with any fevers, worsening of pain, or other concerns that you have. Print Language: Cape Verdean Coding Level of Care Code ED Picker for Chg Fwd Documented by User: Santos Downing MD 07/21/24 03:59 HPI - Abdominal Pain 2 General: Chief Complaint: Abdominal Pain Stated Complaint: Chest Pains Burning\V Time Seen by Provider: 07/20/24 22:24 Related Data Previous Rx's ?Medication ?Instructions ?Recorded albuterol sulfate 90 mcg/actuation 2 puff inhalation Q 6H PRN 03/30/24 aerosol inhaler shortness of breath or wheez ing #8.5 grams albuterol sulfate 8 mg 8 mg PO Q12H #20 tabs tablet,extended release,12 hr amoxicillin 875 mg-potassium 1 tab PO BID 10 days #20 tabs 07/21/24 clavulanate 125 mg tablet ondansetron 4 mg disintegrating 4 mg PO TID PRN nausea and 07/21/24 tablet vomiting #30 tabs pantoprazole 40 mg tablet,delayed 40 mg PO DAILY #30 t abs 07/21/24 release (Protonix) Allergies Allergy/AdvReac Type Severity Reaction Status Date / Time No Known Allergies Allergy Verified 07/20/24 22:23 PFSH ED 2 PFSH: Medical History Anemia Acute arthritis Scoliosis Surgical History H/O excision of mass (11/22/20) Right shoulder [place] teeth extracted History of section x 2, 1998, 2019 History of laparoscopy (~2004) With cyst removal from right ovary and take down of adhesions Family History Grandmother Diabetes maternal and paternal Hypertension maternal and paternal Stroke maternal Heart disease maternal Family/Other Diabetes Maternal aunt Hyperlipidemia Maternal and paternal aunt and uncle Breast cancer Maternal aunt, diagnosed in her 60s Uterine cancer Maternal cousin, diagnosed at age 24 Mother Hyperlipidemia Hypertension Stroke Heart disease Father Hypertension Stroke Heart disease Sister Thyroid disease Denies family history of Colon cancer Ovarian cancer Anesthesia complication Social History Smoking and tobacco/nicotine status: heavy tobacco/nicotine user cigarettes Packs smoked per day: 1 [ Other cigarette details: Started smoking age 9 and smokes up to 1 pack daily] Alcohol intake: current Alcohol intake frequency: holidays/special occasions only Substance/Drug Use: never 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 Directly reported to me that her pain was brought on and worsened by eating, and lying supine. Has tried [id number]-[id number] remedies such as Tums, has not gotten any relief. On exam there is reproducible tenderness to palpation to the epigastrium. Vitals have been stable, notably afebrile. Denies any cardiac history. Here EKG was obtained and reviewed with physician showing no acute STEMI or other abnormalities. Her chest x-ray is unremarkable and her troponin was negative. CBC normal, no elevation in her white count. Urine was cleared of any infection. On her metabolic panel, there was an increase in her LFTs, minimal increase in bilirubin. She also did not report much relief from GI cocktail that I gave her. Ultrasound was obtained of the right upper quadrant, currently pending radiology review at this time and patient's care transferred over to Dr. Downing. Patient was also given morphine for breakthrough pain and Zofran for nausea, as well as started on a liter of fluids. Of note her lipase was negative and she did not report to me any recent alcohol use, stating it had been years since her last drink. Patient signed out to me by FLORENCE Rivero pending radiology read of ultrasound of the gallbladder. Radiology indicates there is gallbladder wall thickening concerning for developing acute cholecystitis as well as common bile duct dilation concerning for retained stone. I spoke with on-call general surgery who recommended transfer to tertiary facility with ERCP capabilities. Dr. Sanabria at [facility] in [place] was contacted and graciously accepted the patient in transfer. She was given a dose of Zosyn and will be taken by ground EMS in stable condition for definitive management. The patient is agreeable to the plan. Lab Data 07/20/24 23:08 07/20/24 23:08 Labs/Radiology: Radiology Impressions Chest X-Ray 07/20/24 22:58 IMPRESSION: No acute findings. Gallbladder Ultrasound 07/21/24 23:49 IMPRESSION: 1. Cholelithiasis, gallbladder wall is mildly thickened to 6 mm, findings are concerning for developing cholecystitis, nuclear medicine HIDA scan could further evaluate this if clinically indicated. 2. Common bile duct mildly dilated without obstructing lesion seen, MRCP could further characterize this. 3. Hepatic steatosis. Laboratory Results WBC 5.92 10^3/uL (3.29-11.43) 07/20/24 23:08 RBC 4.13 10^6/uL (3.85-5.65) 07/20/24 23:08 Hgb 11.40 g/dL (11.27-16.99) 07/20/24 23:08 Hct 36.5 % (36-47) 07/20/24 23:08 MCV 88.4 fl (85-98) 07/20/24 23:08 MCH 27.6 pg (27-33) 07/20/24 23:08 MCHC 31.2 g/dL (30-55) 07/20/24 23:08 RDW 15.1 % (12.1-15.1) 07/20/24 23:08 Plt Count 296 10^3/cmm (157-399) 07/20/24 23:08 MPV 9.5 fL (7.4-10.4) 07/20/24 23:08 Neut % (Auto) 66.9 % 07/20/24 23:08 Lymph % (Auto) 22.6 % 07/20/24 23:08 [place] % (Auto) 9.0 % 07/20/24 23:08 Eos % (Auto) 1.0 % 07/20/24 23:08 Baso % (Auto) 0.2 % 07/20/24 23:08 Neut # (Auto) 3.96 10^3/uL (1.8-7.7) 07/20/24 23:08 Lymph # (Auto) 1.3 10^3/uL (0.8-4.8) 07/20/24 23:08 [place] # (Auto) 0.5 10^3/uL (0.2-0.9) 07/20/24 23:08 Eos # (Auto) 0.1 10^3/uL (0.0-0.8) 07/20/24 23:08 Baso # (Auto) 0.0 10^3/uL (0.0-0.1) 07/20/24 23:08 Nucleated RBC % (auto) 0 % 07/20/24 23:08 Nucleated RBCs # 0.0 /100WBC 07/20/24 23:08 Sodium 138 mmol/L (136-145) 07/20/24 23:08 Potassium 4.4 mmol/L (3.5-5.1) 07/20/24 23:08 Chloride 102 mmol/L (98-107) 07/20/24 23:08 Carbon Dioxide 24 mmol/L (22-29) 07/20/24 23:08 Anion Gap 16.4 (5-19) 07/20/24 23:08 BUN 9 mg/dL (6-20) 07/20/24 23:08 Creatinine 1.0 mg/dL (0.5-0.9) H 07/20/24 23:08 GFR Calculation 60.5 mL/min (90-130) L 07/20/24 23:08 Glucose 86 mg/dL (65-115) 07/20/24 23:08 Calculated Osmolality 284 mOsm/kg (285-295) L 07/20/24 23:08 Calcium 8.6 mg/dL (8.5-10.5) 07/20/24 23:08 Total Bilirubin 2.0 mg/dL (0.15-1.2) H 07/20/24 23:08 AST 508 U/L (0-32) H 07/20/24 23:08 ALT 482 U/L (0-33) H 07/20/24 23:08 Alkaline Phosphatase 253 U/L (35-105) H 07/20/24 23:08 Troponin T Baseline < 6 ng/L (0-10) 07/20/24 23:08 Troponin T 120 Minute 6.00 ng/L (0-10) 07/21/24 01:09 Delta Troponin T 0.62080 ABS# (0-10) 07/21/24 01:09 Total Protein 7.3 g/dL (6.6-8.7) 07/20/24 23:08 Albumin 4.3 g/dL (3.5-5.2) 07/20/24 23:08 Globulin 3.0 g/dL (1.3-4.6) 07/20/24 23:08 Lipase 45 U/L (13-60) 07/20/24 23:08 HCG, Qual Negative (Negative) 07/20/24 23:08 Urine Color Dark yellow (Yellow) A 07/20/24 23:08 Urine Appearance Clear (CLEAR) 07/20/24 23:08 Urine pH 6.5 (5-7) 07/20/24 23:08 Ur Specific [place] 1.012 (1.005-1.030) 07/20/24 23:08 Urine Protein Negative (Negative) 07/20/24 23:08 Urine Glucose (UA) Negative (Normal) 07/20/24 23:08 Urine Ketones Negative (Negative) 07/20/24 23:08 Urine Blood Negative (Negative) 07/20/24 23:08 Urine Nitrate Negative (Negative) 07/20/24 23:08 Urine Bilirubin 1+ (Negative) H 07/20/24 23:08 Urine Urobilinogen 1.0 mg/dL (Negative) 07/20/24 23:08 Ur Leukocyte Esterase Negative (Negative) 07/20/24 23:08 Urine RBC 0-2 /hpf (0-2) 07/20/24 23:08 Urine WBC 0-5 /hpf (0-5) 07/20/24 23:08 Ur Squamous Epith Cells 0-5 /hpf (0-5) 07/20/24 23:08 Amorphous Sediment Not Reportable 07/20/24 23:08 Urine Bacteria None seen /hpf (NONE) 07/20/24 23:08 Hyaline Casts 0-4 /lpf H 07/20/24 23:08 Hepatitis A IgM Ab Non-reactive (Nonreactive) 07/20/24 23:08 Hep Bs Antigen Non-reactive (Nonreactive) 07/20/24 23:08 Hep B Core IgM Ab Non-reactive (Nonreactive) 07/20/24 23:08 Hepatitis C Antibody Non-reactive (Nonreactive) 07/20/24 23:08 EKG Data EKG 1: Interpretation: Time?0111?normal sinus rhythm, rate of 70, no ST segment elevation or depression, no T wave inversions, intervals within normal limits. QTc = 420 Discharge Plan Discharge Patient Disposition: Xfer Short-Term Hosp Clinical Impression: Acute cholecystitis, Transaminitis GERD (gastroesophageal reflux disease) Qualifiers: Esophagitis presence: with esophagitis Esophagitis bleeding: without hemorrhage Qualified Code(s): K21.00 - Gastro-esophageal reflux disease with esophagitis, without bleeding Condition: Stable Discharge Orders: Transfer Out of Facility (Order); Ordered 07/21/24 Ordered By: Santos Downing Referrals: Carmen Mondragon MD [Primary Care Provider] - Patient Instructions: GERD (Gastroesophageal Reflux Disease) (ED), Transaminitis (ED) Activity Restrictions/Additional Instructions: Follow-up with general surgery. Follow-up with your regular doctor. Please take the antibiotics as prescribed. Take Protonix as prescribed. Zofran for nausea. Low-fat diet. Please see the attached patient instructions for further education. Avoid lying flat at least 2 hours after eating. Avoid any food or drink that may potentiate your pain. Please return with any fevers, worsening of pain, or other concerns that you have. Print Language: [place]an Coding Level of Care Code ED Picker for Jake Edmonds
[2024-07-20 23:22] LABS: Basophils % 0.2 %; Eosinophils # 0.1 10^3/uL (0.0-0.8); Hematocrit 36.5 % (36-47); Lymphocytes # 1.3 10^3/uL (0.8-4.8); Lymphocytes % 22.6 %; Mean Corpuscular HGB Conc 31.2 g/dL (30-55); Mean Corpuscular Hemoglobin 27.6 pg (27-33); Mean Corpuscular Volume 88.4 fl (85-98); Mean Platelet Volume 9.5 fL (7.4-10.4); Monocytes # 0.5 10^3/uL (0.2-0.9); Neutrophils # 3.96 10^3/uL (1.8-7.7); Neutrophils % 66.9 %; Nucleated Red Blood Cells % 0 %; Platelet Count 296 10^3/cmm (157-399); Red Blood Count 4.13 10^6/uL (3.85-5.65); Red Cell Distribution Width 15.1 % (12.1-15.1); White Blood Count 5.92 10^3/uL (3.29-11.43)
[2024-07-20 23:23] VITALS: BP 157/98; PULSE 76; O2SAT 100
[2024-07-20 23:23] LABS: Bilirubin Urine 1+ (Negative); Blood Urine Negative (Negative); Glucose Urine UA Negative (Normal); Ketones Urine Negative (Negative); Leukocyte Esterase Urine Negative (Negative); Nitrate Urine Negative (Negative); Protein Urine Negative (Negative); Specific Gravity, Urine 1.012 (1.005-1.030); Urine Appearance Clear (CLEAR); Urine Color Dark Yellow (Yellow); pH Urine 6.5 (5-7)
[2024-07-20] MEDS: lidocaine 2% viscous 15 ML, aluminum-mag hydrox-simethicon 30 ML, sucralfate oral liq 1 GM PO (23:23)
[2024-07-20 23:25] LABS: Add Urine Microscopic? YES; Bacteria Urine None Seen /hpf; Hyaline Casts Urine 0-4 /lpf; RBC Urine 0-2 /hpf (0-2); Squamous Epithelial Cell Urine 0-5 /hpf (0-5); WBC Urine 0-5 /hpf (0-5)
[2024-07-20] MEDS: sodium chloride 0.9% 1,000 ML 999 ML IV (23:25)
[2024-07-20 23:30] VITALS: BP 131/87; PULSE 75; O2SAT 98
[2024-07-20 23:34] LABS: HCG, Serum Qual Negative (Negative)
[2024-07-20 23:37] LABS: Troponin(5th) Baseline < 6 ng/L (0-10)
[2024-07-20 23:40] LABS: Alanine Aminotransferase 482 U/L (0-33); Albumin Level 4.3 g/dL (3.5-5.2); Alkaline Phosphatase 253 U/L (35-105); Anion Gap 16.4 (5-19); Aspartate Amino Transferase 508 U/L (0-32); Blood Urea Nitrogen 9 mg/dL (6-20); Calcium 8.6 mg/dL (8.5-10.5); Carbon Dioxide 24 mmol/L (22-29); Chloride 102 mmol/L (98-107); Glomerular Filtration Rate 60.5 mL/min (90-130); Glucose 86 mg/dL (65-115); Lipase 45 U/L (13-60); Osmolality Calculated 284 mOsm/kg (285-295); Potassium 4.4 mmol/L (3.5-5.1); Sodium 138 mmol/L (136-145); Total Protein 7.3 g/dL (6.6-8.7)
[2024-07-21] VITALS (14 sets, daily range): BP systolic 107–152; BP diastolic 64–96; PULSE 58–85; O2SAT 94–100
[2024-07-21] MEDS: morphine 4 mg/mL SDV 1 mL IVP (00:36)
[2024-07-21] MEDS: ondansetron 2 mg/ML SDV 2 mL 4 MG IVP (00:44)
[2024-07-21 00:53] LABS: Hepatitis A Antibody IgM Non-Reactive (Nonreactive); Hepatitis B Core IgM Non-Reactive (Nonreactive); Hepatitis B Surface Antigen Non-Reactive (Nonreactive); Hepatitis C Virus Antibody Non-Reactive (Nonreactive)
--- NOTE | 2024-07-21 01:11 | ECG_ITS ---
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 Measurements Intervals [place] Rate: 70 P: 150 WA: 140 QRS: 144 QRSD: 71 T: 146 QT: 398 QTc: 432 Interpretive Statements SINUS RHYTHM ARM LEADS REVERSED [INVERTED P AND QRS IN I] Compared to ECG 07/20/2024 22:19:13 Sinus arrhythmia no longer present Electronically Signed On 07-21-2024 21:45:55 CDT by Higinio Holden M.D. [email or web address]
[2024-07-21 01:31] LABS: Troponin 5 2HR Delta 0.00001 ABS# (0-10)
[2024-07-21] MEDS: piperacillin-tazobactam 3.375 GM in sodium chloride 0.9% (plus) 50 ML IV (03:45)
--- NOTE | 2024-07-21 04:58 | ECG_ITS ---
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 Measurements Intervals [place] Rate: 65 P: 59 CO: 132 QRS: 79 QRSD: 78 T: 79 QT: 428 QTc: 448 Interpretive Statements SINUS RHYTHM WITH SINUS ARRHYTHMIA Compared to ECG 07/21/2024 01:11:22 No significant changes Electronically Signed On 07-21-2024 21:45:47 CDT by Higinio Holden M.D. [email or web address]
--- NOTE | 2024-07-21 23:49 | USR_ITS ---
PROCEDURE INFORMATION: Exam: US Abdomen, Limited; Right Upper Quadrant Exam date and time: 07/21/2024 12:49 AM Age: 43 years old Clinical indication: Abdominal pain; Epigastric; Additional info: Transaminitis, upper abd pain TECHNIQUE: Imaging protocol: Real time ultrasound of the abdomen with image documentation. Limited exam focused on the right upper quadrant. COMPARISON: CT abdomen pelvis wo con [id number] 03/08/2022 5:50 PM FINDINGS: Liver: Hepatic steatosis. Gallbladder: Cholelithiasis, gallbladder wall is mildly thickened to 6 mm, findings are concerning for developing cholecystitis, nuclear medicine HIDA scan could further evaluate this if clinically indicated. Biliary ducts: Common bile duct mildly dilated without obstructing lesion seen, MRCP could further characterize this. Pancreas: Visualized pancreas is unremarkable. Right kidney: Normal. No mass. No hydronephrosis. US/US gall bladder [id number] IMPRESSION: 1. Cholelithiasis, gallbladder wall is mildly thickened to 6 mm, findings are concerning for developing cholecystitis, nuclear medicine HIDA scan could further evaluate this if clinically indicated. 2. Common bile duct mildly dilated without obstructing lesion seen, MRCP could further characterize this. 3. Hepatic steatosis.
== END 2024-07-21 10:00 | disposition short-term general hospital (02) ==
PROVIDERS: Physician Assistant; Emergency Provider Student in an Organized Health Care Education/Training Program; PCP Family Medicine
DX: K81.0 Acute cholecystitis (principal); R74.01 Elevation of levels of liver transaminase levels; K21.00 Gastro-esophageal reflux disease with esophagitis, without bleeding; F17.210 Nicotine dependence, cigarettes, uncomplicated
CPT/HCPCS: 36415; 71045; 76705; 80053; 80074; 81001; 83690; 84484; 84703; 85025; 93005; 96361; 96365; 96375; 99285; J2270; J2405; J2543; J7030; J9999

== ENCOUNTER 2024-10-24 19:11 | Emergency (ER) | payer MEDICAID, SELFPAY ==
[2024-10-24 19:15] VITALS: BP 117/77; PULSE 102; RESP 16; TEMP 36.9; O2SAT 99; BMI 29.6
--- NOTE | 2024-10-24 19:44 | ED_ITS ---
HPI - General Adult General: Chief complaint: General Medical Stated complaint: Post Surgery,Throat\Chest ABD Pain Time Seen by Provider: 10/24/24 19:36 History of Present Illness: Patient is a 44-year-old lady with recent cholecystitis/ERCP/stent that was placed by Ronna, and removed 6 days ago. For the last 2 days she has had increasing abdominal pain. She does have association nausea. She is not tolerating p.o. intake. Associated symptoms: Reports nausea and vomiting; Deny chest pain, dyspnea, headache(s), rash or palpitations Related Data Previous Rx's ?Medication ?Instructions ?Recorded albuterol sulfate 90 mcg/actuation 2 puff inhalation Q 6H PRN 03/30/24 aerosol inhaler shortness of breath or wheez ing #8.5 grams albuterol sulfate 8 mg 8 mg PO Q12H #20 tabs tablet,extended release,12 hr ondansetron 4 mg disintegrating 4 mg PO TID PRN nausea and 07/21/24 tablet vomiting #30 tabs pantoprazole 40 mg tablet,delayed 40 mg PO DAILY #30 t abs 07/21/24 release (Protonix) Allergies Allergy/AdvReac Type Severity Reaction Status Date / Time No Known Allergies Allergy Verified 07/20/24 22:23 Review of Systems General: Reports: 10 or more systems reviewed and unremarkable except in HPI and below Const: Denies: fever(s) or chills ENMT: Denies: throat pain or dry mouth Card: Denies: chest pain or palpitations Resp: Denies: dyspnea or non-productive cough GI: Reports: abdominal pain, nausea and vomiting Musc: Denies: neck pain or back pain Skin/Breast: Denies: rash or pruritus Neuro: Denies: headache(s) or weakness in extremities Psych: Denies: anxiety or depression PFSH ED PFSH: Medical History (Updated 10/25/24 @ 02:04 by FLORENCE Sam) Anemia Acute arthritis Scoliosis Surgical History H/O excision of mass (11/22/20) Right shoulder [place] teeth extracted History of section x 2, 1998, 2019 History of laparoscopy (~2004) With cyst removal from right ovary and take down of adhesions Family History Grandmother Diabetes maternal and paternal Hypertension maternal and paternal Stroke maternal Heart disease maternal Family/Other Diabetes Maternal aunt Hyperlipidemia Maternal and paternal aunt and uncle Breast cancer Maternal aunt, diagnosed in her 60s Uterine cancer Maternal cousin, diagnosed at age 24 Mother Hyperlipidemia Hypertension Stroke Heart disease Father Hypertension Stroke Heart disease Sister Thyroid disease Denies family history of Colon cancer Ovarian cancer Anesthesia complication Social History Smoking and tobacco/nicotine status: heavy tobacco/nicotine user cigarettes Packs smoked per day: 1 [ Other cigarette details: Started smoking age 9 and smokes up to 1 pack daily] Alcohol intake: current Alcohol intake frequency: holidays/special occasions only Substance/Drug Use: never 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 [employer] Physical Exam Const: COMMON NORMALS: no acute distress, average body habitus and patient oriented x3 Resp: COMMON NORMALS: normal respiratory effort, No retractions and clear to auscultation bilaterally AUSCULTATION: clear to auscultation bilaterally Cardio: COMMON NORMALS: regular rate and regular rhythm RATE: regular rate RHYTHM: regular rhythm GI: COMMON NORMALS: no masses and no bruits PALPATION: Yes Tenderness to palpation present (GI) Details: LLQ and RLQ : COMMON NORMALS: Yes no CVA tenderness BLADDER/KIDNEY EXAM: Yes no CVA tenderness Back/Pelvis: COMMON NORMALS: no CVA tenderness Extremity: COMMON NORMALS: normal to inspection, full ROM and capillary refill normal Neuro: UNA COMA SCALE: document GCS findings COMMON NORMALS: patient oriented x3 and CN's II-XII intact bilaterally Psych: COMMON NORMALS: mental status grossly normal and Normal thought process present THOUGHT PROCESS: Normal thought process present Skin: COMMON NORMALS: no rashes or lesions noted and no wounds GENERAL SKIN EXAM: no rashes or lesions noted Course Vital Signs: Vital signs: Vital Signs Temperature 98.4 F 10/24/24 19:15 Pulse Rate 102 H 10/24/24 19:15 Respiratory Rate 16 10/24/24 19:15 Blood Pressure 117/77 10/24/24 19:15 Pulse Oximetry 99 10/24/24 19:15 Oxygen Delivery Me thod Room Air 10/24/24 19:15 MDM - General Adult Medical Decision Making Patient is leaving AGAINST MEDICAL ADVICE given the limitations that are available at this hospital (no ERCP). She understands the risk of leaving including . No radiology studies performed this visit Discharge Plan Discharge Patient Disposition: Left Against Medical Advice Clinical Impression: Abdominal pain Condition: Stable Prescriptions: No Action albuterol sulfate 8 mg tablet extended release 12 hr 8 mg PO Q12H Qty: 20 0RF albuterol sulfate 90 mcg/actuation HFA aerosol inhaler 2 puff inhalation Q6H PRN (Reason: shortness of breath or wheezing) Qty: 8.5 0RF pantoprazole [Protonix] 40 mg tablet,delayed release (DR/EC) 40 mg PO DAILY Qty: 30 0RF ondansetron 4 mg tablet,disintegrating 4 mg PO TID PRN (Reason: nausea and vomiting) Qty: 30 0RF Referrals: Carmen Mondragon MD [Primary Care Provider, Family Practice] Patient Instructions: Abdominal Pain (ED) Print Language: Japanese Coding Level of Care Code ED District Director for Jake Edmonds
--- NOTE | 2024-10-24 20:15 | PC.NURSE ---
Spoke with patient about Plan of Care. She informed me she was signing out AMA and driving herself to [facility] ED. She states that she was informed by the provider that she needed to go to the facility that performed the surgery. I discussed the AMA process with her and she verbalized understanding and stated this was reviewed with her by the Provider as well.
== END 2024-10-24 19:50 | disposition left against medical advice (07) ==
PROVIDERS: Emergency Provider Physician Assistant; PCP Family Medicine
DX: R10.9 Unspecified abdominal pain (principal); Z98.890 Other specified postprocedural states; Z53.21 Procedure and treatment not carried out due to patient leaving prior to being seen by health care provider